=== PATIENT | female | born 1995 ===

== ENCOUNTER 2022-11-13 13:15 | Emergency (ER) | payer MEDICAID, SELFPAY ==
--- NOTE | ~2022-11-13 | CT_ITS ---
EXAMINATION: CT HEAD WITHOUT CONTRAST CLINICAL INFORMATION: Dizziness. Neck pain. COMPARISON: None. TECHNIQUE: Contiguous axial imaging was performed from the skull base to vertex without intravenous administration of contrast. Coronal and sagittal reformatted images are performed at the CT scanner. [This CT examination was performed using dose optimization techniques as appropriate, variously including the following: *Automated exposure control *Adjustment of mA and/or kV according to patient size (this includes techniques or standardized protocols for targeted exams where dose is matched to indication/reason for exam; i.e. extremities or head) *Use of iterative reconstruction technique] DLP: 526 mGy-cm. FINDINGS: There is no evidence of acute intracranial hemorrhage or territorial infarction. No abnormal mass-effect or midline shift is seen. Szymanski to white matter differentiation is well preserved. No extra-axial fluid collections are identified. The ventricles are normal in size. There is no abnormal attenuation within the brain parenchyma. There is no osseous abnormality. The mastoid air cells and visualized portions of the paranasal sinuses are well-aerated. CT/CT head/brain wo IV con IMPRESSION: No acute intracranial pathology.
--- NOTE | 2022-11-13 14:06 | ED.HA ---
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 Patient reports she has had a headache for the last 3 weeks. The headache comes and goes but is generally worse at night She feels as though she is having difficulty sleeping and then she tends to get headaches She states that she occasionally feels dizziness with this She does report a history of headaches for which usually improved with Tylenol Patient denies any trauma to the head or neck. Denies any weakness, blurry vision or nausea She is not on any preventative medications for headaches She has no other medical problems She does have a Nexplanon implant that she has had for over a year Currently the patient does not have any headache <Juan David Royal - Last Filed: 11/13/22 18:44> Related Data Home Medications: Previous Rx's Medication Instructions Recorded melatonin 5 mg tablet 5 - 10 mg PO BEDTIME PRN sleep #30 11/13/22 tabs <PRISCILLA Blackburn - Last Filed: 11/13/22 14:13> Allergies/Adverse Reactions: Allergies Allergy/AdvReac Type Severity Reaction Status Date / Time No Known Allergies Allergy Verified 11/13/22 14:13 <PRISCILLA Blackburn - Last Filed: 11/13/22 14:13> Review of Systems Constitutional: Constitutional: Reports as per HPI, Denies chills, Denies fatigue, Denies fever(s) and Reports headache(s) <Juan David Royal - Last Filed: 11/13/22 18:44> ENT: Reports otalgia and Reports headache(s) <Juan David Perezy - Last Filed: 11/13/22 18:44> Cardiovascular: Cardiovascular: Denies chest pain and Denies dyspnea <Juan David MccannFairplay - Last Filed: 11/13/22 18:44> Respiratory: Respiratory: Denies cough and Denies dyspnea <Juan David OFairplay - Last Filed: 11/13/22 18:44> Gastrointestinal: Gastrointestinal: Denies abdominal pain, Denies constipation and Denies vomiting <Juan David SiobhanFairplay - Last Filed: 11/13/22 18:44> Genitourinary: Genitourinary: Denies dysuria <Juan David ChidiFairplay - Last Filed: 11/13/22 18:44> Neurologic: Reports headache(s) and Denies focal weakness <Juan Davidjude Perezy - Last Filed: 11/13/22 18:44> Psychiatric: Psychiatric: Reports abnormal sleep pattern <Juan David Perezy - Last Filed: 11/13/22 18:44> Endocrine: Endocrine: Denies fatigue <Juan David Perezy - Last Filed: 11/13/22 18:44> [facility] Social History Social History: Social History Alcohol intake: never Smoked in Last 30 Days: No <PRISCILLA Blackburn - Last Filed: 11/13/22 14:13> Physical Exam Vital Signs: Vital Signs: Last Vital Signs Temp 97.8 F 11/13/22 14:07 Pulse 68 11/13/22 18:24 Resp 11/13/22 18:24 BP 120/77 11/13/22 18:24 Pulse Ox 100 11/13/22 18:24 O2 Del Method Room Air 11/13/22 18:24 BMI result Body Mass Index 21.5 <PRISCILLA Blackburn - Last Filed: 11/13/22 14:13> Vital Signs: Last Vital Signs Temp 97.8 F 11/13/22 14:07 Pulse 68 11/13/22 18:24 Resp 20 11/13/22 18:24 BP 120/77 11/13/22 18:24 Pulse Ox 100 11/13/22 18:24 O2 Del Method Room Air 11/13/22 18:24 BMI result Body Mass Index 21.5 < Last Filed: 11/13/22 18:44> Const: General: healthy appearing, comfortable, no acute distress, alert and awake < Last Filed: 11/13/22 18:44> Nutritional Appearance: well nourished < Last Filed: 11/13/22 18:44> Orientation/consciousness: patient oriented x3 < Last Filed: 11/13/22 18:44> HEENT: Head: Yes normocephalic and Yes atraumatic < Last Filed: 11/13/22 18:44> Ears: external ears normal, TM normal on the right and TM normal on the left (Left middle ear effusion without erythema or perforation) < Last Filed: 11/13/22 18:44> Eyes: Eyelids: Yes eyelids normal < Last Filed: 11/13/22 18:44> Conjunctivae: conjunctivae normal < Last Filed: 11/13/22 18:44> Sclerae: sclerae normal < Last Filed: 11/13/22 18:44> Corneas: corneas normal < Last Filed: 11/13/22 18:44> Pupils: Equal, round and reactive pupils present < Filed: 11/13/22 18:44> EOM: EOMs intact bilaterally < Last Filed: 11/13/22 18:44> Neck: Neck: Yes full ROM, Yes no lymphadenopathy and Yes no meningeal signs < Last Filed: 11/13/22 18:44> Resp: Effort & Inspection: normal respiratory effort, able to speak in complete sentences, no audible wheezes and not labored < Last Filed: 11/13/22 18:44> Auscultation: clear to auscultation bilaterally < Last Filed: 11/13/22 18:44> Cardio: Rate: regular rate < Filed: 11/13/22 18:44> Rhythm: regular rhythm <Juan Davidjude Perez Last Filed: 11/13/22 18:44> GI: Inspection: No distended <Juan David OFairplay - Last Filed: 11/13/22 18:44> Palpation (GI): Soft to palpation, not firm, nontender, no guarding and not rigid <Juan David OFairplay - Last Filed: 11/13/22 18:44> Auscultation: normoactive bowel sounds <Juan Davidjude Perez Last Filed: 11/13/22 18:44> Skin: General skin exam: no rashes or lesions noted and elasticity normal <Juan David OTroy - Last Filed: 11/13/22 18:44> Neuro: General: patient oriented x3 and no meningeal signs <Juan Davidjude Perez Last Filed: 11/13/22 18:44> Cranial nerves: Yes CN's II-XII intact bilaterally, Yes Equal, round and reactive pupils present and Yes Bilaterally intact EOM present <Juan Davidjude Perez Last Filed: 11/13/22 18:44> Cognition (Neuro): normal cognition <Juan David MurilloFairplay - Last Filed: 11/13/22 18:44> Course Course Course Narrative: RME: 27-year-old female with no significant past medical history presenting the ED complaining of constant LEY and posterior neck pain x3 weeks. +insomnia and room spinning dizziness. +photophobia denies fever, weakness No midline cervical spinous tenderness. Right-sided paraspinal tenderness noted. TMs WNL. Focal deficits Head CT ordered Full HPI, ROS and PE to be performed by primary ED provider. <PRISCILLA Blackburn - Last Filed: 11/13/22 14:13> Medical Decision Making Medical Decision Making MDM Narrative: This is a healthy 27-year-old female presenting for evaluation of intermittent headaches. Currently she does not have any headache. Her neurologic exam is reassuring without deficit. CT scan of brain is unremarkable. The patient headaches may be related to the insomnia. We will start with melatonin as needed for insomnia. She will follow-up with her PCP. <Juan David Royal - Last Filed: 11/13/22 18:44> Differential Diagnosis Acute headache Tension headache Insomnia Anxiety Stress Migraine headache Intracranial mass <Juan David Royal - Last Filed: 11/13/22 18:44> Lab Data MDM Lab Attestation statement: I reviewed the patient's lab results. <Juan David Royal - Last Filed: 11/13/22 18:44> Result Diagrams: 11/13/22 14:46 11/13/22 14:46 <PRISCILLA Blackburn - Last Filed: 11/13/22 14:13> Labs: Lab Results 11/13/22 11/13/22 11/13/22 Range/Units 14:46 14:46 14:46 WBC 7.0 (4.8-10.8) X10*3/uL RBC 5.17 (4.20-5.50) X10*6/uL Hgb 13.8 (12.0-16.0) g/dl Hct 43.1 (37.0-47.0) % MCV 83.4 (80.0-98.0) fL MCH 26.7 L (27.0-33.0) pg MCHC 32.0 (31.0-35.0) g/dl RDW 12.7 (11.0-16.0) % Plt Count 234 (160-400) X10*3/uL MPV 11.3 (9.4-12.3) fL Immature Gran % (Auto) 0.1 (0.0-0.4) % Neut % (Auto) 59.6 (45-73) % Lymph % (Auto) 30.2 (20-40) % Hooker % (Auto) 8.8 (2-11) % Eos % (Auto) 0.9 (0-4) % Baso % (Auto) 0.4 (0-2) % Lymph # (Auto) 2.1 (1.2-4.9) X10*3/uL Hooker # (Auto) 0.6 (0.1-1.2) X10*3/uL Eos # (Auto) 0.1 (0.0-0.4) X10*3/uL Baso # (Auto) 0.0 (0.0-0.2) X10*3/uL Abs Immat Gran (auto) 0.01 (0.00-0.03) X10*3/uL Absolute Neuts (auto) 4.2 (2.0-8.3) x10*3/uL Absolute Nucleated RBC 0.000 (0.0-0.012) X10*3/uL Nucleated RBC % (auto) 0.0 (0.0-0.2) /100WBC Sodium 139 (135-145) mmol/L Potassium 4.5 (3.3-5.1) mmol/L Chloride 106 (96-108) mmol/L Carbon Dioxide 26 (22-29) mmol/L Anion Gap 12 (12-20) BUN 10 (9-16) mg/dL Creatinine 0.76 (0.5-1.4) mg/dL Estim Creat Clear Calc 87.9 Estimated GFR > 60 Random Glucose 86 (60-115) mg/dL Calcium 9.8 (8.4-10.2) mg/dL Total Bilirubin 1.3 H (0.0-1.0) mg/dL Direct Bilirubin 0.3 (0.0-0.5) mg/dL AST 18 (5-31) U/L ALT 15 (0-31) U/L Alkaline Phosphatase 67 (39-117) U/L Troponin I High Sens < 2.7 (<3.5-17.0) ng/L Total Protein 7.7 (6.5-8.0) g/dL Albumin 4.7 (3.5-5.0) g/dL <PRISCILLA Blackburn - Last Filed: 11/13/22 14:13> Lab Results 11/13/22 11/13/22 11/13/22 Range/Units 14:46 14:46 14:46 WBC 7.0 (4.8-10.8) X10*3/uL RBC 5.17 (4.20-5.50) X10*6/uL Hgb 13.8 (12.0-16.0) g/dl Hct 43.1 (37.0-47.0) % MCV 83.4 (80.0-98.0) fL MCH 26.7 L (27.0-33.0) pg MCHC 32.0 (31.0-35.0) g/dl RDW 12.7 (11.0-16.0) % Plt Count 234 (160-400) X10*3/uL MPV 11.3 (9.4-12.3) fL Immature Gran % (Auto) 0.1 (0.0-0.4) % Neut % (Auto) 59.6 (45-73) % Lymph % (Auto) 30.2 (20-40) % Hooker % (Auto) 8.8 (2-11) % Eos % (Auto) 0.9 (0-4) % Baso % (Auto) 0.4 (0-2) % Lymph # (Auto) 2.1 (1.2-4.9) X10*3/uL Hooker # (Auto) 0.6 (0.1-1.2) X10*3/uL Eos # (Auto) 0.1 (0.0-0.4) X10*3/uL Baso # (Auto) 0.0 (0.0-0.2) X10*3/uL Abs Immat Gran (auto) 0.01 (0.00-0.03) X10*3/uL Absolute Neuts (auto) 4.2 (2.0-8.3) x10*3/uL Absolute Nucleated RBC 0.000 (0.0-0.012) X10*3/uL Nucleated RBC % (auto) 0.0 (0.0-0.2) /100WBC Sodium 139 (135-145) mmol/L Potassium 4.5 (3.3-5.1) mmol/L Chloride 106 (96-108) mmol/L Carbon Dioxide 26 (22-29) mmol/L Anion Gap 12 (12-20) BUN 10 (9-16) mg/dL Creatinine 0.76 (0.5-1.4) mg/dL Estim Creat Clear Calc 87.9 Estimated GFR > 60 Random Glucose 86 (60-115) mg/dL Calcium 9.8 (8.4-10.2) mg/dL Total Bilirubin 1.3 H (0.0-1.0) mg/dL Direct Bilirubin 0.3 (0.0-0.5) mg/dL AST 18 (5-31) U/L ALT 15 (0-31) U/L Alkaline Phosphatase 67 (39-117) U/L Troponin I High Sens < 2.7 (<3.5-17.0) ng/L Total Protein 7.7 (6.5-8.0) g/dL Albumin 4.7 (3.5-5.0) g/dL <Juan David Royal - Last Filed: 11/13/22 18:44> Discharge Plan Discharge Clinical Impression: Headache, Insomnia <PRISCILLA Blackburn - Last Filed: 11/13/22 14:13> Patient Disposition: Home, Self-Care <PRISCILLA Blackburn - Last Filed: 11/13/22 14:13> Instructions: Insomnia (ED) <PRISCILLA Blackburn - Last Filed: 11/13/22 14:13> Additional Instructions: Take melatonin 30 minutes before trying to go to sleep Your headaches may be related to lack of sleep. Your workup in the emergency room today was reassuring <PRISCILLA Blackburn - Last Filed: 11/13/22 14:13> Prescriptions: New melatonin 5 mg tablet 5 - 10 mg PO BEDTIME PRN (Reason: sleep) Qty: 30 0RF <PRISCILLA Blackburn - Last Filed: 11/13/22 14:13>
[2022-11-13 14:07] VITALS: BP 126/78; PULSE 79; RESP 16; TEMP 36.6; O2SAT 99; BMI 21.5
--- NOTE | 2022-11-13 14:14 | ECG_ITS ---
Test Reason : dizzy Blood Pressure : / mmHG Vent. Rate : 071 BPM Atrial Rate : 071 BPM P-R Int : 162 ms QRS Dur : 076 ms QT Int : 360 ms P-R-T Axes : 058 064 051 degrees QTc Int : 391 ms Normal sinus rhythm Cannot rule out Anterior infarct , age undetermined Abnormal ECG No previous ECGs available Referred By: Krysta Girard Electronically Signed By:Brandon Chilel
[2022-11-13 14:53] LABS: Basophils Percent Auto 0.4 % (0-2); Eosinophils Absolute Auto 0.1 X10*3/uL (0.0-0.4); Eosinophils Percent Auto 0.9 % (0-4); Hematocrit 43.1 % (37.0-47.0); Hemoglobin 13.8 g/dl (12.0-16.0); Imm Gran Abs Auto 0.01 X10*3/uL (0.00-0.03); Imm Gran Pct Auto 0.1 % (0.0-0.4); Lymphocytes Absolute Auto 2.1 X10*3/uL (1.2-4.9); Lymphocytes Percent Auto 30.2 % (20-40); MANUAL DIFF FLAG NO; Mean Corpuscular Hemoglobin 26.7 pg (27.0-33.0); Mean Corpuscular Volume 83.4 fL (80.0-98.0); Mean Platelet Volume 11.3 fL (9.4-12.3); Monocytes Absolute Auto 0.6 X10*3/uL (0.1-1.2); Monocytes Percent Auto 8.8 % (2-11); Neutrophils Absolute Auto 4.2 x10*3/uL (2.0-8.3); Neutrophils Percent Auto 59.6 % (45-73); Platelet Count 234 X10*3/uL (160-400); Red Blood Count 5.17 X10*6/uL (4.20-5.50); Red Cell Distribution Width 12.7 % (11.0-16.0)
[2022-11-13 15:11] LABS: Alanine Aminotransferase 15 U/L (0-31); Albumin Level 4.7 g/dL (3.5-5.0); Alkaline Phosphatase 67 U/L (39-117); Anion Gap 12 (12-20); Aspartate Amino Transferase 18 U/L (5-31); Bilirubin Direct 0.3 mg/dL (0.0-0.5); Bilirubin Total 1.3 mg/dL (0.0-1.0); Blood Urea Nitrogen 10 mg/dL (9-16); Calcium 9.8 mg/dL (8.4-10.2); Carbon Dioxide 26 mmol/L (22-29); Chloride 106 mmol/L (96-108); Creatinine Clr Calc Pharmacy 87.9; Estimated Glomerular Filt Rate > 60; Glucose Random 86 mg/dL (60-115); Potassium 4.5 mmol/L (3.3-5.1); Sodium 139 mmol/L (135-145); Total Protein 7.7 g/dL (6.5-8.0)
[2022-11-13 15:38] LABS: Troponin-I High Sensitivity < 2.7 ng/L (<3.5-17.0)
[2022-11-13 18:19] VITALS: BP 120/77; PULSE 68; RESP 14; O2SAT 100
[2022-11-13 18:24] VITALS: BP 120/77; PULSE 68; RESP 20; O2SAT 100
--- NOTE | 2022-11-13 18:32 | PC.NURSE ---
With utilizing intpreter patient reporting 2 weeks worth of neck pain that radiates up to her lower head, reporting blurry vision on/off. Reports no pain at this time, LEY only in the morning and night. Denies n/v/d. denies room spinning, reports some left cramping numbness off and on. labs/testing obtained awaiting provider.
== END 2022-11-13 19:04 | disposition home or self-care (01) ==
LOC: HO.ED 19:00
PROVIDERS: Physician Assistant; Emergency Provider Emergency Medicine
DX: R51.9 Headache, unspecified (principal); G47.00 Insomnia, unspecified
CPT/HCPCS: 36415; 70450; 80048; 80076; 84484; 85025; 93005; 99284; 99285

== ENCOUNTER 2024-08-01 05:30 | Emergency (ER) | payer MEDICAID, SELFPAY ==
--- NOTE | 2024-08-01 | ECG_ITS ---
Test Reason : CHEST PAIN Blood Pressure : */* mmHG Vent. Rate : 82 BPM Atrial Rate : 82 BPM P-R Int : 168 ms QRS Dur : 74 ms QT Int : 356 ms P-R-T Axes : 68 65 44 degrees QTcB Int : 415 ms Normal sinus rhythm Septal infarct (cited on or before 13-Nov-2022) Abnormal ECG When compared with ECG of 13-Nov-2022 14:40, Questionable change in initial forces of Septal leads Referred By: Generic ED Physician Electronically Signed By: Brandon Chilel
--- NOTE | ~2024-08-01 | US_ITS ---
EXAMINATION: US OBSTETRICAL ULTRASOUND CLINICAL INFORMATION: Positive test, right lower quadrant pain. COMPARISON: No prior. Ultrasound abdomen Limited performed concurrently. LMP: Unknown.. TECHNIQUE: Ultrasound of the maternal pelvis is performed using transabdominal and transvaginal transducers. Transvaginal imaging is performed due to inadequate visualization transabdominally. M-mode Doppler is also performed. FINDINGS: Uterus is anteverted and anteflexed. It measures 8.3 x 3.8 x 4.8 cm. The cervix is normal and closed. There is no gestational sac identified, nor is there dual decidual reaction seen. This may be on the basis of early dates. There is no fluid in the endometrial canal. Endometrial thickness equals 10 mm. No myometrial abnormality is evident. No fibroid is seen. MATERNAL ADNEXA: The right maternal ovary measures 2.8 x 1.9 x 3.3 cm. There is a corpus luteal cyst present measuring 1.8 by 1.3 x 2.4 cm. The left maternal ovary measures 3.0 x 1.6 x 1.8 cm. It is sonographically normal. There is no significant maternal adnexal mass. No maternal pelvic ascites. US/US OB pelvic and transvaginal IMPRESSION: 1. No IUP identified. Normal thickness endometrium. This may be on the basis of dates too early for gestational sac visualization. Recommend follow-up beta-hCG and repeat scanning as deemed clinically necessary. 2. Normal myometrial echogenicity. No fibroids. 3. No maternal adnexal mass or pelvic ascites. Normal ovaries. Electronically signed by: Keny Espinosa MD 08/01/2024 09:41 AM [facility]
--- NOTE | ~2024-08-01 | US_ITS ---
EXAMINATION: US ABDOMEN LIMITED CLINICAL INFORMATION: Right upper quadrant pain. COMPARISON: None available. TECHNIQUE: Real-time imaging of the right upper quadrant abdominal viscera. FINDINGS: PANCREAS: Visualized portions are unremarkable. LIVER: The liver is normal in size. The liver contour is normal. Parenchymal echogenicity is normal. No focal hepatic lesion. There is no intrahepatic biliary duct dilatation seen. GALLBLADDER: The gallbladder is physiologically distended without evidence of stones, sludge, polyps, wall thickening or pericholecystic fluid. COMMON BILE DUCT: Normal in caliber measuring 0.2 and 0.3 cm in diameter. RIGHT KIDNEY: There is mild pelvic fullness. No renal calculi or focal parenchymal lesions. The kidney measures 10.7 cm in maximum dimension. FREE FLUID: None. US/US abdomen limited IMPRESSION: Unremarkable gallbladder. Visualized pancreas, liver, CBD and right kidney is unremarkable. Electronically signed by: Rafael Oliver MD 08/01/2024 09:28 AM [facility]
[2024-08-01 05:51] VITALS: BP 103/64; PULSE 86; RESP 18; TEMP 36.8; O2SAT 98; BMI 23.1
[2024-08-01 05:57] LABS: MANUAL DIFF FLAG NO
[2024-08-01 05:59] LABS: Basophils Percent Auto 0.1 % (0-2); Eosinophils Absolute Auto 0.1 X10*3/uL (0.0-0.4); Eosinophils Percent Auto 1.1 % (0-4); Hematocrit 37.9 % (37.0-47.0); Hemoglobin 12.7 g/dl (12.0-16.0); Imm Gran Abs Auto 0.02 X10*3/uL (0.00-0.03); Imm Gran Pct Auto 0.2 % (0.0-0.4); Lymphocytes Absolute Auto 2.9 X10*3/uL (1.2-4.9); Lymphocytes Percent Auto 35.4 % (20-40); Mean Corpuscular HGB Conc 33.5 g/dl (31.0-35.0); Mean Corpuscular Hemoglobin 26.7 pg (27.0-33.0); Mean Corpuscular Volume 79.8 fL (80.0-98.0); Mean Platelet Volume 10.7 fL (9.4-12.3); Monocytes Absolute Auto 0.7 X10*3/uL (0.1-1.2); Monocytes Percent Auto 8.9 % (2-11); Neutrophils Absolute Auto 4.4 x10*3/uL (2.0-8.3); Neutrophils Percent Auto 54.3 % (45-73); Platelet Count 249 X10*3/uL (160-400); Red Blood Count 4.75 X10*6/uL (4.20-5.50); Red Cell Distribution Width 13.1 % (11.0-16.0); White Blood Count 8.2 X10*3/uL (4.8-10.8)
[2024-08-01 06:01] LABS: Appearance Urine Clear; Color Urine Yellow; Glucose Urine UA Negative (Negative); Leukocyte Esterase Urine Small (1+) (Negative); Nitrite Urine Negative (Negative); Specific Gravity - Urine 1.015 (1.005-1.025); UMIC TRIGGER UACC YES; UPreg QC Valid YES; Urine Blood Negative (Negative); Urine Ketones Negative (Negative); Urine Pregnancy POSITIVE (NEGATIVE); Urine Protein Negative (Neg-Trace)
[2024-08-01 06:12] LABS: Bacteria Urine Trace (None Seen); Hyaline Casts Urine 0-2 /LPF (0-2); RBC Urine 0-2 /HPF (0-2); UACC Culture Trigger YES
[2024-08-01 06:16] LABS: Alanine Aminotransferase 15 U/L (0-31); Albumin Level 4.3 g/dL (3.5-5.0); Alkaline Phosphatase 69 U/L (39-117); Anion Gap 12 (12-20); Aspartate Amino Transferase 20 U/L (5-31); Bilirubin Total 1.1 mg/dL (0.0-1.0); Blood Urea Nitrogen 10 mg/dL (9-16); Calcium 8.4 mg/dL (8.4-10.2); Carbon Dioxide 21 mmol/L (22-29); Chloride 108 mmol/L (96-108); Creatinine Clr Calc Pharmacy 96.5; Estimated Glomerular Filt Rate > 60; Glucose Random 87 mg/dL (60-115); Potassium 3.6 mmol/L (3.3-5.1); Sodium 137 mmol/L (135-145); Total Protein 7.3 g/dL (6.5-8.0)
[2024-08-01 06:23] LABS: Troponin-I High Sensitivity < 2.7 ng/L (<3.5-17.0)
--- NOTE | 2024-08-01 08:11 | ED_ITS ---
HPI - Abdominal Pain General Chief Complaint: Abdominal Pain Stated Complaint: chest pain, abd pain Time Seen by Provider: 08/01/24 08:09 Source: patient and educational sign language interpreter (lao) Mode of arrival: ambulatory Limitations: language barrier (lao speaking) History of Present Illness ED Provider: OLIVIA SIERRA PA-C HPI narrative: 29 year old Yemeni speaking female, , with no significant pmhx presents to the ED today for evaluation of right upper quadrant abdominal pain x 2-3 days. Reports constant pain that waxes and wanes in severity. Pain is worse with deep breathing/movement and endorses difficulty finding a comfortable position to lie down in due to the pain. She states the pain will occasionally radiate into the right side of her chest. She reports pain initially began in her right lower quadrant approximately 2 weeks ago. This pain has since subsided. She denies associated nausea, vomiting, constipation or diarrhea. Her LMP was mid-May however she can not recall the exact date. She states that she is currently trying to conceive. She has had 2 negative urine tests at home. Denies any fever, chills, dysuria, hematuria, vaginal discharge. No surgical history. Reports last was 10 years ago. No complications. Related Data Previous Rx's ?Medication ?Instructions ?Recorded melatonin 5 mg tablet 5 - 10 mg (1 - 2 x 5 mg) PO 11/13/22 BEDTIME PRN sleep #30 tabs acetaminophen 325 mg capsule 650 mg (2 x 325 mg) PO Q6H PRN 08/01/24 pain (scale score 4-6) #20 caps cephalexin 500 mg capsule 500 mg PO TID 5 days #21 caps 08/01/24 vit 168-iron 27 mg-folic 1 cap PO DAILY #30 caps 08/01/24 acid 800 mcg-omega3 235 mg capsule (One-A-Day -1) Allergies Allergy/AdvReac Type Severity Reaction Status Date / Time No Known Allergies Allergy Verified 08/05/24 09:59 Review of Systems Review of Systems Constitutional: No fever, chills, fatigue, night sweats, weight changes ENT/Mouth: No ear pain, hearing loss, nasal congestion, sinus pain, rhinorrhea, sore throat Eyes: No eye pain, swelling, redness, vision changes, discharge Cardio: No chest pain, palpitations, D[place], orthopnea, peripheral edema Pulm: No SOB, cough, sputum, wheezing, dyspnea, hemoptysis GI: No nausea, vomiting, hematemesis, diarrhea, constipation, hematochezia, melena, +abdominal pain : No irregular bleeding, dysuria, frequency, urgency, hesitancy, hematuria, flank pain, urinary flow changes, urinary incontinence or retention MSK: No back pain, neck pain, joint pain, myalgias Skin: No lesions, rashes Neuro: No weakness, numbness, paresthesias, LOC, dizziness, headache Psych: No anxiety/panic, depression, SI/HI, AH/VH All other systems reviewed and are negative. [facility] Past Medical History Attestation statement: The following information was validated with the patient. Source: old records reviewed and nursing notes reviewed Social History Social History Alcohol intake: never Advance Directives: No Advance Directives Information Provided: No Do you have a plan to hurt others: No Plan Physical Exam ED Vital Signs: Vital Signs - 24 hr 08/01/24 10:02 08/01/24 10:22 08/01/24 11:34 Temperature 97.4 F 97.4 F 97.4 F Pulse Rate 73 73 73 Respiratory Rate 16 16 16 Blood Pressure 109/69 109/69 133/78 Pulse Oximetry 100 100 Oxygen Delivery Method Room Air BMI result Body Mass Index 23.1 vital signs stable. afebrile, not tachycardic, not hypoxic. General: Well appearing, in no acute distress. Skin: Warm, dry, intact. No rashes or lesions. Head: Normocephalic, atraumatic. EENT: Hearing is intact b/l. Conjunctiva clear. PERRLA. EOM intact. Moist mucous membranes.? Neck: Supple without LAD Cardiac: Chest wall symmetric. RRR Lungs: Normal respiratory effort without accessory muscle use. CTA bilaterally. No rales, rhonchi, or wheezes.? Abdomen: Soft, non-tender, non-distended. No rebound tenderness or guarding. Positive BS x4. no cvat. : exam deferred Back: No midline spinous or paraspinal tenderness. No step off deformity. Ext: Upper and lower extremities atraumatic, without tenderness, deformity, swelling or erythema. Full ROM throughout. no calf tenderness b/l. Neuro: AOx3. Normal speech. Ambulating with steady gait. Psych: Appropriate mood and affect. Responds appropriately to questions. Course Course Course Narrative: CBC without leukocytosis or left shift. no anemia. h&h stable. chsmitry without acute electrolyte abnormality requiring intervention. no maryam. troponin undetectable. EKG showing normal sinus rhythm with a rate of 82 beats per minute, QT 356, QTC 415, no acute ischemic changes or ST elevations. no upper respiratory/ systemic symptoms to suggest CXR or viral testing. > beta hcg 317. Pelvic/transvaginal ultrasound does not demonstrate IUP. There is normal thickness of the endometrium which may signify dates being too early for gestational sac visualization. Recommending follow up beta HCG and repeat scanning as clinically necessary. There is no obvious adnexal mass or pelvic ascites to indicate ectopic/ruptured ectopic. normal ovaries. > urine w/ small leukocyte esterase, wbc, trace urine bacteria. As patient was , will treat for asymptomatic bacteriuria. keflex sent to pharmacy for treatment. > on re-evaluation, patient reports significant improvement in pain w/ Tylenol administration. unclear etiology of patient's pain however work up is unremarkable. she does not currently have a PCP or OBGYN so I advised her to follow up in our ED in 2 days for repeat HCG. Medical Decision Making Medical Decision Making MDM Narrative: 29 year old Yemeni speaking female, , with no significant pmhx presents to the ED today for evaluation of right upper quadrant abdominal pain x 2-3 days. Vital signs stable. Afebrile. Not tachycardic or hypoxic. She is nontoxic- appearing and in no acute distress. Sitting comfortably on the exam bed. Please refer to physical exam portion of note for findings. Differential diagnosis includes biliary colic, renal colic, nephrolithiasis, gastroenteritis, UTI, intrauterine . Abdominal exam without peritoneal signs. No evidence of acute abdomen at this time. Well appearing. Moderate suspicion for acute hepatobiliary disease (including acute cholecystitis). Less likely to represent acute pancreatitis, PUD (including perforation), acute infectious processes (pneumonia, hepatitis, pyelonephritis), atypical appendicitis, vascular catastrophe, bowel obstruction or viscus perforation. Presentation not consistent with other acute, emergent causes of abdominal pain at this time. Plan: labs, EKG, UA, pain control, pelvic ultrasound, RUQ US, serial reassessment Differential Diagnosis Differential Diagnoses: The differential diagnosis associated with the presentation includes as above. Admission/Observation Consideration of admission/observation: Escalation of care including admission/observation considered Admission considered on presentation. Lab Data MDM Lab Attestation statement: I reviewed the patient's lab results. As above 08/01/24 05:49 08/01/24 05:49 Labs: Lab Results 08/01/24 08/01/24 Range/Units 05:49 05:51 WBC 8.2 (4.8-10.8) X10*3/uL RBC 4.75 (4.20-5.50) X10*6/uL Hgb 12.7 (12.0-16.0) g/dl Hct 37.9 (37.0-47.0) % MCV 79.8 L (80.0-98.0) fL MCH 26.7 L (27.0-33.0) pg MCHC 33.5 (31.0-35.0) g/dl RDW 13.1 (11.0-16.0) % Plt Count 249 (160-400) X10*3/uL MPV 10.7 (9.4-12.3) fL Immature Gran % (Auto) 0.2 (0.0-0.4) % Neut % (Auto) 54.3 (45-73) % Lymph % (Auto) 35.4 (20-40) % Centre % (Auto) 8.9 (2-11) % Eos % (Auto) 1.1 (0-4) % Baso % (Auto) 0.1 (0-2) % Lymph # (Auto) 2.9 (1.2-4.9) X10*3/uL Centre # (Auto) 0.7 (0.1-1.2) X10*3/uL Eos # (Auto) 0.1 (0.0-0.4) X10*3/uL Baso # (Auto) 0.0 (0.0-0.2) X10*3/uL Abs Immat Gran (auto) 0.02 (0.00-0.03) X10*3/uL Absolute Neuts (auto) 4.4 (2.0-8.3) x10*3/uL Absolute Nucleated RBC 0.000 (0.0-0.012) X10*3/uL Nucleated RBC % (auto) 0.0 (0.0-0.2) /100WBC Sodium 137 (135-145) mmol/L Potassium 3.6 (3.3-5.1) mmol/L Chloride 108 (96-108) mmol/L Carbon Dioxide 21 L (22-29) mmol/L Anion Gap 12 (12-20) BUN 10 (9-16) mg/dL Creatinine 0.68 (0.5-1.4) mg/dL Estim Creat Clear Calc 96.5 Estimated GFR > 60 Random Glucose 87 (60-115) mg/dL Calcium 8.4 D (8.4-10.2) mg/dL Total Bilirubin 1.1 H (0.0-1.0) mg/dL AST 20 (5-31) U/L ALT 15 (0-31) U/L Alkaline Phosphatase 69 (39-117) U/L Troponin I High Sens < 2.7 (<3.5-17.0) ng/L Total Protein 7.3 (6.5-8.0) g/dL Albumin 4.3 (3.5-5.0) g/dL Beta HCG, Quant 317 mIU/mL Urine Color Yellow Urine Appearance Clear Urine pH 6.0 (5.0-9.0) Ur Specific Horace 1.015 (1.005-1.025) Urine Protein Negative (Neg-Trace) mg/dL Urine Glucose (UA) Negative (Negative) mg/dL Urine Ketones Negative (Negative) mg/dL Urine Blood Negative (Negative) Urine Nitrite Negative (Negative) Ur Leukocyte Esterase Small (1+) H (Negative) Urine RBC 0-2 (0-2) /HPF Urine WBC 6-10 H (0-5) /HPF Ur Squamous Epith Cells 3-5 (0-2) /HPF Urine Bacteria Trace (None Seen) Hyaline Casts 0-2 (0-2) /LPF Urine Test POSITIVE H (NEGATIVE) Independent Interpretation I performed an independent interpretation of an: EKG and Ultrasound Interpretation: EKG showing normal sinus rhythm with a rate of 82 beats per minute, QT 356, QTC 415, no acute ischemic changes or ST elevations. Ultrasound right upper quadrant without GB wall thickening Pelvic US w/o adnexal mass or IUP Radiology Impression Discussion of test interpretation with radiology: I have reviewed the radiologist's reading. Radiologist Impression: EXAMINATION: US ABDOMEN LIMITED CLINICAL INFORMATION: Right upper quadrant pain. COMPARISON: None available. TECHNIQUE: Real-time imaging of the right upper quadrant abdominal viscera. FINDINGS: PANCREAS: Visualized portions are unremarkable. LIVER: The liver is normal in size. The liver contour is normal. Parenchymal echogenicity is normal. No focal hepatic lesion. There is no intrahepatic biliary duct dilatation seen. GALLBLADDER: The gallbladder is physiologically distended without evidence of stones, sludge, polyps, wall thickening or pericholecystic fluid. COMMON BILE DUCT: Normal in caliber measuring 0.2 and 0.3 cm in diameter. RIGHT KIDNEY: There is mild pelvic fullness. No renal calculi or focal parenchymal lesions. The kidney measures 10.7 cm in maximum dimension. FREE FLUID: None. US/US abdomen limited IMPRESSION: Unremarkable gallbladder. Visualized pancreas, liver, CBD and right kidney is unremarkable. Electronically signed by: Rafael Oliver MD 08/01/2024 09:28 AM [facility] EXAMINATION: US OBSTETRICAL ULTRASOUND CLINICAL INFORMATION: Positive test, right lower quadrant pain. COMPARISON: No prior. Ultrasound abdomen Limited performed concurrently. LMP: Unknown.. TECHNIQUE: Ultrasound of the maternal pelvis is performed using transabdominal and transvaginal transducers. Transvaginal imaging is performed due to inadequate visualization transabdominally. M-mode Doppler is also performed. FINDINGS: Uterus is anteverted and anteflexed. It measures 8.3 x 3.8 x 4.8 cm. The cervix is normal and closed. There is no gestational sac identified, nor is there dual decidual reaction seen. This may be on the basis of early dates. There is no fluid in the endometrial canal. Endometrial thickness equals 10 mm. No myometrial abnormality is evident. No fibroid is seen. MATERNAL ADNEXA: The right maternal ovary measures 2.8 x 1.9 x 3.3 cm. There is a corpus luteal cyst present measuring 1.8 by 1.3 x 2.4 cm. The left maternal ovary measures 3.0 x 1.6 x 1.8 cm. It is sonographically normal. There is no significant maternal adnexal mass. No maternal pelvic ascites. US/US OB pelvic and transvaginal IMPRESSION: 1. No IUP identified. Normal thickness endometrium. This may be on the basis of dates too early for gestational sac visualization. Recommend follow-up beta-hCG and repeat scanning as deemed clinically necessary. 2. Normal myometrial echogenicity. No fibroids. 3. No maternal adnexal mass or pelvic ascites. Normal ovaries. Electronically signed by: Keny Espinosa MD 08/01/2024 09:41 AM [facility] External Record Review External record reviewed: Inpatient record Prescription Management I considered prescription management with: Pain Medication and Antibiotic (keflex) Social Determinants Patient?s care significantly limited by Social Determinants of Health including: Other Social Determinant of Health Medications Administered Discontinued Medications Generic Name Dose Route Start Last Admin Trade Name Freq PRN Reason Stop Dose Admin Acetaminophen 975 mg 08/01/24 08:33 08/01/24 09:22 Acetaminophen 325 Mg Tablet PO 08/01/24 08:34 975 mg ONCE ONE Administration Critical Care Time Critical Care Time Critical Care Time: No Discharge Plan Discharge Clinical Impression: , Urinary tract infection Patient Disposition: Home, Self-Care Instructions: (ED), Urinary Tract Infection in Women (ED) Additional Instructions: Your blood work today is reassuring. Both your urine and blood test were positive. Your hormone is 315 today. as discussed, this should double in 48 hours. I advise you to return to the ED in 2 days for repeat blood work. I have sent vitamins to your pharmacy. Take these daily throughout your . I advised Tylenol for pain control. Avoid NSAIDs as these are not safe in . I have also provided you with a referral to an OBGYN doctor. Call them to establish care. they will not call you. Your urine was also positive for infection. Keflex is an antibiotic that has been sent to your pharmacy. Take this 3 times daily x5 days. As discussed, return with any worsening pain, vaginal discharge, vaginal bleeding, fevers. In the case of an emergency call 911. Prescriptions: New acetaminophen 325 mg capsule 650 mg PO Q6H PRN (Reason: pain (scale score 4-6)) Qty: 20 0RF One-A-Day -1 27 mg iron- 800 mcg-235 mg capsule 1 cap PO DAILY Qty: 30 0RF cephalexin 500 mg capsule 500 mg PO TID 5 Days Qty: 21 0RF No Action melatonin 5 mg tablet 5 - 10 mg PO BEDTIME PRN (Reason: sleep) Qty: 30 0RF Referrals: [facility] [place] [Provider Group] [facility] [Provider Group] [facility] [Provider Group] Interventions: ED Discharge Assessment Last Done: 08/01/24 11:34 Discharge Date/Time: 08/01/24 11:34 Print Language: Yemeni
[2024-08-01 08:35] LABS: HCG Quantitative 317 mIU/mL
--- NOTE | 2024-08-01 08:50 | PC.NURSE ---
Pt to US at this time.
[2024-08-01] MEDS: Acetaminophen 325 MG TABLET 975 MG PO (09:22)
[2024-08-01 10:02] VITALS: BP 109/69; PULSE 73; RESP 16; TEMP 36.3; O2SAT 100
[2024-08-01 10:22] VITALS: BP 109/69; PULSE 73; RESP 16; TEMP 36.3
[2024-08-01 11:34] VITALS: BP 133/78; PULSE 73; RESP 16; TEMP 36.3; O2SAT 100
== END 2024-08-01 11:34 | disposition home or self-care (01) ==
PROVIDERS: Emergency Provider Emergency Medicine
DX: O23.41 Unspecified infection of urinary tract in pregnancy, first trimester (principal); N39.0 Urinary tract infection, site not specified; Z3A.00 Weeks of gestation of pregnancy not specified
CPT/HCPCS: 36415; 76705; 76801; 76817; 80053; 81001; 81025; 84484; 84702; 85025; 87086; 93005; 99284

== ENCOUNTER → 2024-08-01 05:40 | Outpatient (BNV) | payer SELFPAY | PROVIDERS: Emergency Provider Emergency Medicine; Visit Provider Internal Medicine Cardiovascular Disease | DX: R94.31 Abnormal electrocardiogram [ECG] [EKG] (principal) | CPT/HCPCS: 93010 ==

== ENCOUNTER → 2024-08-01 08:24 | Outpatient (BNV) | payer SELFPAY | PROVIDERS: Emergency Provider Emergency Medicine; Visit Provider Radiology Diagnostic Radiology | DX: R10.11 Right upper quadrant pain (principal) | CPT/HCPCS: 76705 ==

== ENCOUNTER 2024-08-05 09:53 | Emergency (ER) | payer MEDICAID, OTHER, SELFPAY ==
[2024-08-05 09:56] VITALS: BP 105/75; PULSE 79; RESP 18; TEMP 36.6; O2SAT 98; BMI 23.9
[2024-08-05 10:38] LABS: HCG Quantitative 43 mIU/mL
--- NOTE | 2024-08-05 11:20 | ED.GENADULT ---
HPI - General Adult General Chief complaint: General Medical Stated complaint: repeat blood work Time Seen by Provider: 08/05/24 10:11 Source: patient Mode of arrival: ambulatory Limitations: no limitations History of Present Illness ED Provider: Prudence Keith NP HPI narrative: Patient is a 29-year-old female who presents emergency department for re-evaluation. She reports her last menstrual period was mid May does not recall the exact date, was actively trying to conceive. She was seen in the emergency department on 08/01/2024 after having negative tests at home she had been experiencing right-sided abdominal pain. She was found to have beta hCG of 317, ultrasound without evidence of IUP and no obvious adnexal mass or evidence of ectopic/ruptured ectopic . She was advised to return in 2 days for repeat hCG level. She states that the day following her visit she began noticing small amounts of vaginal bleeding Related Data Previous Rx's ?Medication ?Instructions ?Recorded melatonin 5 mg tablet 5 - 10 mg (1 - 2 x 5 mg) PO 11/13/22 BEDTIME PRN sleep #30 tabs acetaminophen 325 mg capsule 650 mg (2 x 325 mg) PO Q6H PRN 08/01/24 pain (scale score 4-6) #20 caps cephalexin 500 mg capsule 500 mg PO TID 5 days #21 caps 08/01/24 vit 168-iron 27 mg-folic 1 cap PO DAILY #30 caps 08/01/24 acid 800 mcg-omega3 235 mg capsule (One-A-Day -1) Allergies Allergy/AdvReac Type Severity Reaction Status Date / Time No Known Allergies Allergy Verified 08/05/24 09:59 [facility] Social History Social History Alcohol intake: never Advance Directives: No Advance Directives Information Provided: No Do you have a plan to hurt others: No Plan Physical Exam ED Vital Signs: Vital Signs - 24 hr 08/05/24 09:56 08/05/24 11:52 08/05/24 12:02 Temperature 98 F 98.9 F 98.9 F Pulse Rate 79 69 69 Respiratory Rate 18 14 14 Blood Pressure 105/75 119/76 119/76 Pulse Oximetry 98 100 100 Oxygen Delivery Method Room Air Room Air Room Air BMI result Body Mass Index 23.9 Appearance: Alert.?Oriented to person, place and time. No acute distress.?Normal affect. CVS: Heart sounds normal. Normal heart rate and rhythm.? Pulses normal.?? Respiratory: No respiratory distress.? Lung sounds clear to auscultation bilaterally?? Abdomen: Soft and non-tender. Normoactive bowel sounds. N Skin: Skin warm and dry.? Normal skin color.? ? Neuro: Moves all extremities spontaneously. Sensation intact bilaterally. Ambulates with normal steady gait. Medical Decision Making Medical Decision Making [facility] Narrative: Patient is a 29-year-old female who presents emergency department for re-evaluation/repeat hCG level as per HPI. Repeat hCG of 43 just downtrending from 317 4 days ago open this most consistent with missed . I reviewed these findings with patient. She does admit that she has had amenorrhea since May of 2024, with her downtrending hCG and new onset of vaginal bleeding, it is unlikely that this will progress to any successful which I did discuss with patient. She does admit that she has been having a difficult time conceiving in his quite tearful during this time. I recommend that she follow-up outpatient with OBGYN to discuss further evaluation/treatment Differential Diagnosis Differential Diagnoses: The differential diagnosis associated with the presentation includes (See narrative above) Lab Data [facility] Lab Attestation statement: I reviewed the patient's lab results. (See narrative above) Labs: Lab Results 08/05/24 Range/Units 10:06 Beta HCG, Quant 43 mIU/mL Independent Historian Clinical information obtained from an independent historian. History obtained from or confirmed by: Spouse External Record Review External record reviewed: Outpatient record Discharge Plan Discharge Clinical Impression: Spontaneous miscarriage Patient Disposition: Home, Self-Care Instructions: Miscarriage (ED) Additional Instructions: As discussed, your blood levels; hCG, is still detectable but at a very low level today it is 43 when you were seen previously was 317. When you were seen initially ultrasound did not show any evidence of an active . Given the blood level is dropping lower and you have been experiencing some bleeding, this is most consistent with a miscarriage. I do recommend that you follow-up with OBGYN for further evaluation and treatment especially since you have been having difficulty with conceiving Prescriptions: No Action melatonin 5 mg tablet 5 - 10 mg PO BEDTIME PRN (Reason: sleep) Qty: 30 0RF acetaminophen 325 mg capsule 650 mg PO Q6H PRN (Reason: pain (scale score 4-6)) Qty: 20 0RF One-A-Day -1 27 mg iron- 800 mcg-235 mg capsule 1 cap PO DAILY Qty: 30 0RF cephalexin 500 mg capsule 500 mg PO TID 5 Days Qty: 21 0RF Referrals: Physician,None [Primary Care Provider] - Jc Mahmood MD [Physician] - Interventions: ED Discharge Assessment Last Done: 08/05/24 12:02 Discharge Date/Time: 08/05/24 12:06 Print Language: Maltese
[2024-08-05 11:52] VITALS: BP 119/76; PULSE 69; RESP 14; TEMP 37.2; O2SAT 100
[2024-08-05 12:02] VITALS: BP 119/76; PULSE 69; RESP 14; TEMP 37.2; O2SAT 100
== END 2024-08-05 12:06 | disposition home or self-care (01) ==
PROVIDERS: Emergency Provider Emergency Medicine
DX: O03.9 Complete or unspecified spontaneous abortion without complication (principal)
CPT/HCPCS: 36415; 84702; 99282; 99283

== ENCOUNTER 2025-02-13 12:32 | Emergency (ER) | payer MEDICAID, OTHER, SELFPAY ==
--- NOTE | ~2025-02-13 | XR_ITS ---
EXAMINATION: XR LUMBOSACRAL SPINE CLINICAL INFORMATION: pain COMPARISON: None available. 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 Rudimentary ribs at T12. No acute cortical disruption or malalignment. No lytic or blastic lesions. 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 Electronically signed by: Dewey Kennedy MD 02/13/2025 02:41 PM EDT
[2025-02-13 12:39] VITALS: BP 119/59; PULSE 107; RESP 18; TEMP 36.4; O2SAT 97; BMI 23.9
--- NOTE | 2025-02-13 12:39 | ED_ITS ---
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 She reports midline lower back pain for the last few days. 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 Her symptoms started after she bent over to pick something up off the floor. Her pain lateralizes to both side but primarily in the left. She denies any abdominal pain, nausea, vomiting. Denies any burning with urination or blood in the urine. She does report foul-smelling urine Denies any vaginal discharge. She denies any recent falls Her pain is worse with movement, especially trying to get up and walk No fevers or chills Related Data Previous Rx's ?Medication ?Instructions ?Recorded melatonin 5 mg tablet 5 - 10 mg (1 - 2 x 5 mg) PO 11/13/22 BEDTIME PRN sleep #30 tabs acetaminophen 325 mg capsule 650 mg (2 x 325 mg) PO Q6 H PRN 08/01/24 pain (scale score 4-6) #20 caps cephalexin 500 mg capsule 500 mg PO TID 5 days #21 cap s 08/01/24 vit 168-iron 27 mg-folic 1 cap PO DAILY #30 c aps 08/01/24 acid 800 mcg-omega3 235 mg capsule (One-A-Day -1) cefuroxime axetil 250 mg tablet 250 mg PO Q12H #10 tab s 02/13/25 cyclobenzaprine 10 mg tablet 10 mg PO TID PRN muscle s pasm #20 02/13/25 tabs ibuprofen 600 mg tablet 600 mg PO Q6H PRN pain #20 t abs 02/13/25 Allergies Allergy/AdvReac Type Severity Reaction Status Date / Time No Known Allergies Allergy Verified 02/13/25 12:42 Review of Systems Constitutional: Constitutional: Denies body ache(s), Denies chills, Denies fever(s) and Denies headache(s) ENT: Denies headache(s) Cardiovascular: Cardiovascular: Denies chest pain and Denies dyspnea on exertion Respiratory: Respiratory: Denies cough and Denies dyspnea on exertion Gastrointestinal: Gastrointestinal: Denies abdominal pain, Denies nausea and Denies vomiting Genitourinary: Genitourinary: Denies dysmenorrhea, Denies dysuria and Denies pelvic pain Comments: Reports foul-smelling your Musculoskeletal: Musculoskeletal: Reports back pain, Denies numbness and Reports radiating pain into limb Integumentary/Breasts: Skin/Breast: Denies rash Neurologic: Denies headache(s) and Denies numbness Psychiatric: Psychiatric: Denies anxiety PMFSH Social History Social History Alcohol intake: never Physical Exam Vital Signs: Vital Signs: Last Vital Signs Temp 97.6 F 02/13/25 12:39 Pulse 107 H 02/13/25 12:39 Resp 18 02/13/25 12:39 BP 119/59 L 02/13/25 12:39 Pulse Ox 97 02/13/25 12:39 O2 Del Method Room Air 02/13/25 12:39 BMI result Body Mass Index 23.9 Const: General: healthy appearing, comfortable, no acute distress, alert and awake Nutritional Appearance: well nourished Orientation/consciousness: patient oriented x3 HEENT: Head: Yes normocephalic and Yes atraumatic Eyes: Eyelids: Yes eyelids normal Conjunctivae: conjunctivae normal Sclerae: sclerae normal Corneas: corneas normal Pupils: Equal, round and reactive pupils present EOM: EOMs intact bilaterally Neck: Neck: Yes full ROM Resp: Effort & Inspection: normal respiratory effort, able to speak in complete sentences and not labored GI: Inspection: No distended Palpation (GI): Soft to palpation, not firm, nontender, no guarding and not rigid Back/Spine/Pelvis: Other: Patient has midline lumbar sacral tenderness without deformity. Straight leg raise positive on right, negative on left. Strength to lower extremities bilaterally 5/5 in all major muscle groups. No CVA tenderness Skin: General skin exam: elasticity normal Neuro: General: patient oriented x3 Cranial nerves: Yes Equal, round and reactive pupils present and Yes Bilaterally intact EOM present Cognition (Neuro): normal cognition Course Course Course Narrative: This is an RME performed by Estefania Keith CNP: Additional HPI, ROS, PE not included below will be deferred to primary provider. Patient is a 29-year-old female who presents emergency department for evaluation of mid lower back pain x5 days, radiates down right leg, worse with bending and standing. Reports possibility for . No bladder or bowel dysfunction. Denies dysuria/urgency/hesitancy. In: Urinalysis/HCG, XR lumbar spine Medical Decision Making Medical Decision Making MDM Narrative: 29-year-old female presents for evaluation of back pain that radiates towards the left and right side. Her pain started after she bent down to pick something up off the ground and she describes feeling a ?spasm. ? This started 4 days ago. Clinically her pain is more likely musculoskeletal in origin, her x-ray shows Bertolotti syndrome and sacralization which could contribute to her back pain. I discussed this with her using the cigarette maker. No warning signs for cauda equina syndrome. She denies any abdominal pain, nausea, vomiting. She reports foul-smelling urine but denies burning with urination or frequency. Discussed possible UTI with her as there is 4+ bacteria in the urine with positive esterase but no nitrites. Given that she does have foul-smelling urine she would like to be treated for a UTI and this will be prescribed. Vital signs are stable, no fever, no CVA tenderness, less likely complicated UTI Differential Diagnosis Differential Diagnoses: The differential diagnosis associated with the presentation includes Low back pain Bertolotti syndrome Radiculopathy Sciatica UTI Pyelonephritis less likely Admission/Observation Consideration of admission/observation: Escalation of care including admission/observation considered Lab Data Labs: Lab Results 02/13/25 Range/Units 13:02 Urine Color Yellow Urine Appearance Cloudy Urine pH 6.0 (5.0-9.0) Ur Specific Jackson 1.015 (1.005-1.025) Urine Protein Negative (Neg-Trace) mg/dL Urine Glucose (UA) Negative (Negative) mg/dL Urine Ketones Negative (Negative) mg/dL Urine Blood Small (1+) H (Negative) Urine Nitrite Negative (Negative) Ur Leukocyte Esterase Large (3+) H (Negative) Urine RBC 0-2 (0-2) /HPF Urine WBC 6-10 (0-5) /HPF Ur Squamous Epith Cells 11-20 (0-2) /HPF Urine Bacteria 4+ (None Seen) Hyaline Casts 0-2 (0-2) /LPF Urine Test NEGATIVE (NEGATIVE) Discharge Plan Discharge Clinical Impression: Low back pain, UTI (urinary tract infection) Patient Disposition: Home, Self-Care Instructions: Acute Low Back Pain (ED) Additional Instructions: 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 Use ibuprofen/Tylenol for pain. You may use cyclobenzaprine as needed for muscle spasms. This may make you drowsy, do not drink alcohol or drive after taking it. 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 Rudimentary ribs at T12. No acute cortical disruption or malalignment. No lytic or blastic lesions. 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 Electronically signed by: Dewey Kennedy MD 02/13/2025 02:41 PM EDT Prescriptions: New cyclobenzaprine 10 mg tablet 10 mg PO TID PRN (Reason: muscle spasm) Qty: 20 0RF ibuprofen 600 mg tablet 600 mg PO Q6H PRN (Reason: pain) Qty: 20 0RF cefuroxime axetil 250 mg tablet 250 mg PO Q12H Qty: 10 0RF No Action melatonin 5 mg tablet 5 - 10 mg PO BEDTIME PRN (Reason: sleep) Qty: 30 0RF acetaminophen 325 mg capsule 650 mg PO Q6H PRN (Reason: pain (scale score 4-6)) Qty: 20 0RF One-A-Day -1 27 mg iron- 800 mcg-235 mg capsule 1 cap PO DAILY Qty: 30 0RF cephalexin 500 mg capsule 500 mg PO TID 5 Days Qty: 21 0RF Stand Alone Forms: Work/School Release Print Language: Maldivian
[2025-02-13 13:30] LABS: UPreg QC Valid YES
[2025-02-13 13:31] LABS: Appearance Urine Cloudy; Glucose Urine UA Negative (Negative); PH 6.0 (5.0-9.0); Specific Gravity - Urine 1.015 (1.005-1.025); UMIC TRIGGER UACC YES
[2025-02-13 13:50] LABS: UACC Culture Trigger YES
--- OUTSIDE RECORDS SUMMARY | 2025-02-13 16:30 | XMS_ITS | Clinical Summary ---
Author Organization [employer] Address [address] [place] [address] [address] [place] [address] Care Team Providers Care State Director Name Role Phone Unavailable Primary Care Provider Unavailabl e Allergies No known active allergies Medications Sodium Fluoride (PreviDent 5000 Booster Plus) 1.1 % paste Apply 1 application to teeth 2 times daily. 112 g 3 Active Active Problems Problem Noted Date Diagnosed Date Dental calculus 11/19/2022 Social History Tobacco Use Types Packs/Day Years Used Date Smoking Tobacco: Never Smokeless Tobacco: Never Tobacco Cessation:Counseling Given: Not Answered Alcohol Use Standard Drinks/Week Comments Yes 0 (1 standard drink = 0.6 oz pur e alcohol) Comments Unknown Sex and Gender Information Value Date Recorded Sex Assigned at Female 09/25/2022 1:34 PM EST Legal Sex Female 8:40 PM EDT Gender Identity Female 09/25/2022 1:34 PM EST Sexual Orientation Straight 09/25/2022 1: 34 PM EST Last Filed Vital Signs Vital Sign Reading Time Taken Comments Blood Pressure 118/76 12/24/2022 1:36 PM EDT Pulse 66 11/19/2022 1:07 PM EDT Temperature - - Respiratory Rate - - Oxygen Saturation - - Inhaled Oxygen Concentration - - Weight - - Height - - Body Mass Index - - Plan of Treatment Health Maintenance Due Date Last Done Comments Depression Screening 1995 HIV Screening 1995 SDOH Screening 1995 Disability Screening 1995 Alcohol/Substance Use Screening 2007 Family Planning (PISQ) 2010 HPV Vaccines (1 - 3-dose series) 2010 Hepatitis C Screening 2013 DTaP/Tdap/Td Vaccines (1 - Tdap) 2014 Hepatitis B Vaccines (1 of 3 - 19+ 3-dose series) 2014 Pap Smear 02/26/2016 Dental Oral Exam 04/18/2023 10/15/2022 Dental Prophylaxis 05/23/2023 11/19/2022 Dental X-Ray: Bitewings 10/17/2023 10/15/2022 Tobacco Screening 12/25/2023 12/24/2022 COVID-19 Vaccine (1 - 2023-2 5 season) 2024 Influenza Vaccine (#1) 2025 Dental X-Ray: Full Mouth 10/16/2025 10/15/2022 Zoster Vaccines (1 of 2) 2045 RSV Patients and Pa tients Aged 60 years or older (1 - 1-dose 75+ series) 2070 HIB Vaccines Aged Out No longer eligi ble based on patient's age to complete this topic Hepatitis A Vaccines Aged Out No long er eligible based on patient's age to complete this topic IPV Vaccines Aged Out No longer eligi ble based on patient's age to complete this topic Meningococcal B Vaccine Aged Out No l onger eligible based on patient's age to complete this topic Meningococcal Vaccine Aged Out No óscar [place] eligible based on patient's age to complete this topic Pneumococcal Vaccine: Pediat rics (0 to 5 Years) and At-Risk Patients (6 to 49) Years Aged Out No longer eligi ble based on patient's age to complete this topic RSV under 20 months Aged Out No longe r eligible based on patient's age to complete this topic Rotavirus Vaccines Aged Out No longer eligible based on patient's age to complete this topic Procedures Procedure Name Priority Date/Time Associated Diagnosis Comments PROPHYLAXIS - ADULT Routine 11/19/2022 1 :00 PM EDT Dental calculus INTRAORAL - COMPLETE SERIES OF RADIOGRAPHIC IMAGES Routine 10/15/2022 11:00 AM EDT COMPREHENSIVE ORAL EVALUATION - NEW OR ESTABLISHED PATIENT Routine 10/15/2022 11:00 AM EDT from Last 3 Months or Most Recently Relevant to Health Maintenance Insurance [place] C[facility] MEDICAID STAND ADULT
[2025-02-13 16:56] VITALS: BP 119/59; PULSE 107; RESP 18; TEMP 36.4; O2SAT 97
== END 2025-02-13 16:56 | disposition home or self-care (01) ==
PROVIDERS: Nurse Practitioner Family; Emergency Provider Emergency Medicine
DX: M54.50 Low back pain, unspecified (principal); N39.0 Urinary tract infection, site not specified
CPT/HCPCS: 72100; 81001; 81025; 87086; 99282; 99283

== ENCOUNTER → 2025-02-13 13:43 | Outpatient (BNV) | payer MEDICAID, SELFPAY | PROVIDERS: Visit Provider Radiology Diagnostic Radiology | DX: M54.50 Low back pain, unspecified (principal) | CPT/HCPCS: 72100 ==

== ENCOUNTER 2025-04-21 12:04 | Emergency (ER) | payer MEDICAID, OTHER, SELFPAY ==
--- NOTE | ~2025-04-21 | US_ITS ---
CLINICAL HISTORY: , nausea US OB 1st Trimester transabdominal and transvaginal Comparison: None provided Findings: Single intrauterine . CRL: 8.5 mm. EGA: 6 weeks, 6 days. DAVONTE: December 09[birth year] 2025. Previously established gestational age: N/A. Normal yolk sac. Cardiac activity: 135 bpm. No subchorionic bleed. Right ovary 2.3 x 3 x 2.7 cm. Left ovary 0.8 x 1.7 x 1.4 cm. IMPRESSION: Single intrauterine estimated 6 weeks, 6 days gestational age by today's ultrasound criteria. This document has been electronically signed by: Parminder Abdalla MD on 04/21/2025 14:28:02
[2025-04-21 12:25] VITALS: BP 118/60; PULSE 75; RESP 20; TEMP 36.4; O2SAT 100; BMI 24.8
--- NOTE | 2025-04-21 12:27 | ED.GENADULT ---
HPI - General Adult General Chief complaint: General Medical Stated complaint: test Time Seen by Provider: 04/21/25 13:47 Related Data Previous Rx's ?Medication ?Instructions ?Recorded melatonin 5 mg tablet 5 - 10 mg (1 - 2 x 5 mg) PO 11/13/22 BEDTIME PRN sleep #30 tabs acetaminophen 325 mg capsule 650 mg (2 x 325 mg) PO Q6H PRN 08/01/24 pain (scale score 4-6) #20 caps cephalexin 500 mg capsule 500 mg PO TID 5 days #21 caps 08/01/24 vits 168-iron 27 mg-folic 1 cap PO DAILY #30 caps 08/01/24 acid 800 mcg-omega3 235 mg capsule (One-A-Day -1) cefuroxime axetil 250 mg tablet 250 mg PO Q12H #10 tabs 02/13/25 cyclobenzaprine 10 mg tablet 10 mg PO TID PRN muscle spasm #20 02/13/25 tabs ibuprofen 600 mg tablet 600 mg PO Q6H PRN pain #20 tabs 02/13/25 doxylamine succinate 25 mg tablet 25 mg PO BEDTIME #14 tabs 04/21/25 pyridoxine (vitamin B6) 25 mg 25 mg PO TID #60 tabs 04/21/25 tablet Allergies Allergy/AdvReac Type Severity Reaction Status Date / Time No Known Allergies Allergy Verified 04/21/25 12:28 [facility] Social History Social History Alcohol intake: never Advance Directives: No Advance Directives Information Provided: No Do you have a plan to hurt others: No Plan Physical Exam ED Vital Signs: Vital Signs - 24 hr 04/21/25 12:25 04/21/25 15:11 Temperature 97.5 F 97.5 F Pulse Rate 75 75 Respiratory Rate 20 20 Blood Pressure 118/60 118/60 Pulse Oximetry 100 100 Oxygen Delivery Method Room Air Room Air BMI result Body Mass Index 24.8 Course Course Course Narrative: Medical screening exam performed. Please refer to detailed history, exam, evaluation, and management by primary provider. 30-year-old female LMP of January 29, positive test approximately 2 weeks ago. Here with nausea, no care with this . No vaginal discharge bleeding or spotting. Medical Decision Making Lab Data 04/21/25 13:00 04/21/25 13:00 Labs: Lab Results 04/21/25 04/21/25 Range/Units 13:00 13:01 WBC 10.9 H (4.8-10.8) X10*3/uL RBC 4.82 (4.20-5.50) X10*6/uL Hgb 13.1 (12.0-16.0) g/dl Hct 38.7 (37.0-47.0) % MCV 80.3 (80.0-98.0) fL MCH 27.2 (27.0-33.0) pg MCHC 33.9 (31.0-35.0) g/dl RDW 13.8 (11.0-16.0) % Plt Count TNP MPV TNP Immature Gran % (Auto) 0.3 (0.0-0.4) % Neut % (Auto) 73.3 H (45-73) % Lymph % (Auto) 17.5 L (20-40) % [place] % (Auto) 7.7 (2-11) % Eos % (Auto) 0.9 (0-4) % Baso % (Auto) 0.3 (0-2) % Lymph # (Auto) 1.9 (1.2-4.9) X10*3/uL [place] # (Auto) 0.8 (0.1-1.2) X10*3/uL Eos # (Auto) 0.1 (0.0-0.4) X10*3/uL Baso # (Auto) 0.0 (0.0-0.2) X10*3/uL Abs Immat Gran (auto) 0.03 (0.00-0.03) X10*3/uL Absolute Neuts (auto) 8.0 (2.0-8.3) x10*3/uL Absolute Nucleated RBC 0.000 (0.0-0.012) X10*3/uL Nucleated RBC % (auto) 0.0 (0.0-0.2) /100WBC Smear Tech's Comments VERIFIED Sodium 135 (135-145) mmol/L Potassium 3.8 (3.3-5.1) mmol/L Chloride 106 (96-108) mmol/L Carbon Dioxide 23 (22-29) mmol/L Anion Gap 10 L (12-20) BUN 8 L (9-16) mg/dL Creatinine 0.60 (0.5-1.4) mg/dL Estim Creat Clear Calc 120.0 Estimated GFR > 60 Random Glucose 78 (60-115) mg/dL Calcium 9.2 D (8.4-10.2) mg/dL Beta HCG, Quant 42490 mIU/mL Urine Color Yellow Urine Appearance Clear Urine pH 8.5 (5.0-9.0) Ur Specific [place] 1.020 (1.005-1.025) Urine Protein Trace (Neg-Trace) mg/dL Urine Glucose (UA) Negative (Negative) mg/dL Urine Ketones Negative (Negative) mg/dL Urine Blood Negative (Negative) Urine Nitrite Negative (Negative) Ur Leukocyte Esterase Small (1+) H (Negative) Urine RBC 0-2 (0-2) /HPF Urine WBC 0-5 (0-5) /HPF Ur Squamous Epith Cells 0-2 (0-2) /HPF Urine Bacteria Trace (None Seen) Hyaline Casts 0-2 (0-2) /LPF Blood Type O Positive Discharge Plan Discharge Clinical Impression: Patient Disposition: Home, Self-Care Instructions: (ED) Prescriptions: New doxylamine succinate 25 mg tablet 25 mg PO BEDTIME Qty: 14 0RF pyridoxine (vitamin B6) 25 mg tablet 25 mg PO TID Qty: 60 0RF No Action melatonin 5 mg tablet 5 - 10 mg PO BEDTIME PRN (Reason: sleep) Qty: 30 0RF acetaminophen 325 mg capsule 650 mg PO Q6H PRN (Reason: pain (scale score 4-6)) Qty: 20 0RF One-A-Day -1 27 mg iron- 800 mcg-235 mg capsule 1 cap PO DAILY Qty: 30 0RF cephalexin 500 mg capsule 500 mg PO TID 5 Days Qty: 21 0RF cyclobenzaprine 10 mg tablet 10 mg PO TID PRN (Reason: muscle spasm) Qty: 20 0RF ibuprofen 600 mg tablet 600 mg PO Q6H PRN (Reason: pain) Qty: 20 0RF cefuroxime axetil 250 mg tablet 250 mg PO Q12H Qty: 10 0RF Referrals: [facility] [Provider Group, Internal Medicine] Jc Mahmood MD [Physician, WAREHOUSE MATERIAL HANDLER] Interventions: ED Discharge Assessment Last Done: 04/21/25 15:11 Discharge Date/Time: 04/21/25 15:12 Print Language: Nicaraguan
[2025-04-21 13:22] LABS: Appearance Urine Clear; Glucose Urine UA Negative (Negative); PH 8.5 (5.0-9.0); Specific Gravity - Urine 1.020 (1.005-1.025); UMIC TRIGGER UA YES
[2025-04-21 13:23] LABS: Hematocrit 38.7 % (37.0-47.0); Hemoglobin 13.1 g/dl (12.0-16.0); Imm Gran Abs Auto 0.03 X10*3/uL (0.00-0.03); Imm Gran Pct Auto 0.3 % (0.0-0.4); Lymphocytes Absolute Auto 1.9 X10*3/uL (1.2-4.9); MANUAL DIFF FLAG SCAN; Mean Corpuscular HGB Conc 33.9 g/dl (31.0-35.0); Mean Corpuscular Hemoglobin 27.2 pg (27.0-33.0); Mean Corpuscular Volume 80.3 fL (80.0-98.0); NRBC Abs Auto 0.000 X10*3/uL (0.0-0.012); NRBC Pct Auto 0.0 /100WBC (0.0-0.2); PLT CLUMP 1; Red Blood Count 4.82 X10*6/uL (4.20-5.50); SCAN SMEAR FLAG 1
--- OUTSIDE RECORDS SUMMARY | 2025-04-21 13:28 | XMS_ITS | Encounter Summary ---
Author Organization [employer] Address [address] [place] [address] [address] [place] [address] Care Team Providers Care Glass Etcher Helper Name Role Phone Unavailable Primary Care Provider Unavailabl e Reason for Visit * Reason Onset Date Comments appt cancelled 12/10/2022 Encounter Details Date Type Department Care Team ([facility] st Contact Info) Description 12/10/2022 Telephone [facility] [address] [place] [address] Inderjit Silva, DMD [address] [place] [address] appt cancelled Social History Tobacco Use Types Packs/Day Years Used Date Smoking Tobacco: Never Smokeless Tobacco: Never Alcohol Use Standard Drinks/Week Comments Yes 0 (1 standard drink = 0.6 oz pur e alcohol) Comments Unknown Sex and Gender Information Value Date Recorded Sex Assigned at Female 09/25/2022 1:34 PM EST Legal Sex Female 8:40 PM EDT Gender Identity Female 09/25/2022 1:34 PM EST Sexual Orientation Straight 09/25/2022 1: 34 PM EST COVID-19 Exposure Response Date Recorded In the last 10 days, have yo u been in contact with someone who was confirmed or suspected to have Coronavirus/COVID-19? No / Unsure 12/02/2022 10:15 AM EDT documented as of this encounter Miscellaneous Notes * Telephone Encounter - Marcy Grider - 12/10/2022 1:05 PM EDT Patient called in stating that her appt with Dr. Silva had been cancelled and she wanted to rescheduled. Confirmed with [facility] that patients will be called to reschedule appts with Dr. Silva upon return to office documented in this encounter Plan of Treatment Not on file documented as of this encounter Visit Diagnoses Not on filedocumented in this encounter
--- OUTSIDE RECORDS SUMMARY | 2025-04-21 13:28 | XMS_ITS | Clinical Summary ---
Author Organization [employer] Address [address] [place] [address] [address] [place] [address] Care Team Providers Care Reel Winder Name Role Phone Unavailable Primary Care Provider [...] Bitewings 10/17/2023 10/15/2022 Tobacco Screening 12/25/2023 12/24/2022 Cervical Cancer Screening 2025 HPV/Cotest 2025 COVID-19 Vaccine (1 - 2023-2 5 season) 2025 Influenza Vaccine (#1) 2025 Dental X-Ray: Full [...] Most Recently Relevant to Health Maintenance Insurance [facility] C3 DENTAL-[facility] MEDICAID STAND ADULT
[2025-04-21 13:37] LABS: Anion Gap 10 (12-20); Blood Urea Nitrogen 8 mg/dL (9-16); Calcium 9.2 mg/dL (8.4-10.2); Carbon Dioxide 23 mmol/L (22-29); Chloride 106 mmol/L (96-108); Creatinine Clr Calc Pharmacy 120.0; Estimated Glomerular Filt Rate > 60; Potassium 3.8 mmol/L (3.3-5.1); Sodium 135 mmol/L (135-145)
[2025-04-21 13:48] LABS: White Blood Count 10.9 X10*3/uL (4.8-10.8)
--- NOTE | 2025-04-21 14:40 | ED.GENADULT ---
HPI - General Adult General Chief complaint: General Medical Stated complaint: test Time Seen by Provider: 04/21/25 13:47 Source: patient Mode of arrival: ambulatory Limitations: no limitations History of Present Illness ED Provider: Dr. Lee HPI narrative: 30-year-old female presented hospital today for evaluation of . Patient stated that she has been having some nausea. Positive test at home came in for further evaluation. History of 1 miscarriage, 3 pregnancies. One living child. Denies any vaginal bleeding. Related Data Previous Rx's ?Medication ?Instructions ?Recorded melatonin 5 mg tablet 5 - 10 mg (1 - 2 x 5 mg) PO 11/13/22 BEDTIME PRN sleep #30 tabs acetaminophen 325 mg capsule 650 mg (2 x 325 mg) PO Q6H PRN 08/01/24 pain (scale score 4-6) #20 caps cephalexin 500 mg capsule 500 mg PO TID 5 days #21 caps 08/01/24 vits 168-iron 27 mg-folic 1 cap PO DAILY #30 caps 08/01/24 acid 800 mcg-omega3 235 mg capsule (One-A-Day -1) cefuroxime axetil 250 mg tablet 250 mg PO Q12H #10 tabs 02/13/25 cyclobenzaprine 10 mg tablet 10 mg PO TID PRN muscle spasm #20 02/13/25 tabs ibuprofen 600 mg tablet 600 mg PO Q6H PRN pain #20 tabs 02/13/25 doxylamine succinate 25 mg tablet 25 mg PO BEDTIME #14 tabs 04/21/25 pyridoxine (vitamin B6) 25 mg 25 mg PO TID #60 tabs 04/21/25 tablet Allergies Allergy/AdvReac Type Severity Reaction Status Date / Time No Known Allergies Allergy Verified 04/21/25 12:28 Review of Systems Review of Systems: Pertinent review of systems as mentioned in HPI. All other system otherwise negative. [facility] Past Medical History [facility] Narrative: Medical history as mentioned in HPI Social History Social History Alcohol intake: never Advance Directives: No Advance Directives Information Provided: No Do you have a plan to hurt others: No Plan Physical Exam ED Exam Exam: General: Pleasant, no distress, interacting appropriately Head: Normacephalic, atraumatic ENT: oral mucosa moist, neck supple, no tracheal deviation Neurological: Awake and alert, no facial droop noted Skin: Warm and dry Psychiatric: Appropriate mood and thoughts Vital Signs: Vital Signs - 24 hr 04/21/25 12:25 Temperature 97.5 F Pulse Rate 75 Respiratory Rate 20 Blood Pressure 118/60 Pulse Oximetry 100 Oxygen Delivery Method Room Air BMI result Body Mass Index 24.8 Medical Decision Making Medical Decision Making [facility] Narrative: 30-year-old female presented hospital today for evaluation of . She does not have any abdominal pain no vaginal bleeding. Ultrasound shows 6 week gestational embryo product. Do not think she has ectopic . Beta HCG is positive. She is already taking vitamins at this time. Plan to discharge her with a pyridoxine and doxylamine to take for her nausea. Referral will be provided to follow up with OBGYN. We will also plan to give referral to follow up with the primary care doctor. Patient agrees and understands this plan all questions were addressed. Differential Diagnosis Differential Diagnoses: The differential diagnosis associated with the presentation includes , ectopic , hyperemesis gravidarum Lab Data [facility] Lab Attestation statement: I reviewed the patient's lab results. 04/21/25 13:00 04/21/25 13:00 Labs: Lab Results 04/21/25 04/21/25 Range/Units 13:00 13:01 WBC 10.9 H (4.8-10.8) X10*3/uL RBC 4.82 (4.20-5.50) X10*6/uL Hgb 13.1 (12.0-16.0) g/dl Hct 38.7 (37.0-47.0) % MCV 80.3 (80.0-98.0) fL MCH 27.2 (27.0-33.0) pg MCHC 33.9 (31.0-35.0) g/dl RDW 13.8 (11.0-16.0) % Plt Count TNP MPV TNP Immature Gran % (Auto) 0.3 (0.0-0.4) % Neut % (Auto) 73.3 H (45-73) % Lymph % (Auto) 17.5 L (20-40) % Graves % (Auto) 7.7 (2-11) % Eos % (Auto) 0.9 (0-4) % Baso % (Auto) 0.3 (0-2) % Lymph # (Auto) 1.9 (1.2-4.9) X10*3/uL Graves # (Auto) 0.8 (0.1-1.2) X10*3/uL Eos # (Auto) 0.1 (0.0-0.4) X10*3/uL Baso # (Auto) 0.0 (0.0-0.2) X10*3/uL Abs Immat Gran (auto) 0.03 (0.00-0.03) X10*3/uL Absolute Neuts (auto) 8.0 (2.0-8.3) x10*3/uL Absolute Nucleated RBC 0.000 (0.0-0.012) X10*3/uL Nucleated RBC % (auto) 0.0 (0.0-0.2) /100WBC Smear Tech's Comments VERIFIED Sodium 135 (135-145) mmol/L Potassium 3.8 (3.3-5.1) mmol/L Chloride 106 (96-108) mmol/L Carbon Dioxide 23 (22-29) mmol/L Anion Gap 10 L (12-20) BUN 8 L (9-16) mg/dL Creatinine 0.60 (0.5-1.4) mg/dL Estim Creat Clear Calc 120.0 Estimated GFR > 60 Random Glucose 78 (60-115) mg/dL Calcium 9.2 D (8.4-10.2) mg/dL Beta HCG, Quant 28715 mIU/mL Urine Color Yellow Urine Appearance Clear Urine pH 8.5 (5.0-9.0) Ur Specific [place] 1.020 (1.005-1.025) Urine Protein Trace (Neg-Trace) mg/dL Urine Glucose (UA) Negative (Negative) mg/dL Urine Ketones Negative (Negative) mg/dL Urine Blood Negative (Negative) Urine Nitrite Negative (Negative) Ur Leukocyte Esterase Small (1+) H (Negative) Urine RBC 0-2 (0-2) /HPF Urine WBC 0-5 (0-5) /HPF Ur Squamous Epith Cells 0-2 (0-2) /HPF Urine Bacteria Trace (None Seen) Hyaline Casts 0-2 (0-2) /LPF Blood Type O Positive Independent Interpretation I performed an independent interpretation of an: Ultrasound Radiology Impression Discussion of test interpretation with radiology: I have reviewed the radiologist's reading. Discharge Plan Discharge Clinical Impression: Qualifiers: Weeks of gestation: less than 8 weeks Qualified Code(s): Z3A.01 - Less than 8 weeks gestation of Patient Disposition: Home, Self-Care Instructions: (ED) Prescriptions: New doxylamine succinate 25 mg tablet 25 mg PO BEDTIME Qty: 14 0RF pyridoxine (vitamin B6) 25 mg tablet 25 mg PO TID Qty: 60 0RF No Action melatonin 5 mg tablet 5 - 10 mg PO BEDTIME PRN (Reason: sleep) Qty: 30 0RF acetaminophen 325 mg capsule 650 mg PO Q6H PRN (Reason: pain (scale score 4-6)) Qty: 20 0RF One-A-Day -1 27 mg iron- 800 mcg-235 mg capsule 1 cap PO DAILY Qty: 30 0RF cephalexin 500 mg capsule 500 mg PO TID 5 Days Qty: 21 0RF cyclobenzaprine 10 mg tablet 10 mg PO TID PRN (Reason: muscle spasm) Qty: 20 0RF ibuprofen 600 mg tablet 600 mg PO Q6H PRN (Reason: pain) Qty: 20 0RF cefuroxime axetil 250 mg tablet 250 mg PO Q12H Qty: 10 0RF Referrals: [facility] [place] [facility] [Provider Group, Internal Medicine] Jc Mahmood MD [Physician, OUTCOMES SPECIALIST] Print Language: Japanese
[2025-04-21 15:11] VITALS: BP 118/60; PULSE 75; RESP 20; TEMP 36.4; O2SAT 100
== END 2025-04-21 15:12 | disposition home or self-care (01) ==
PROVIDERS: Physician Assistant; Emergency Provider Student in an Organized Health Care Education/Training Program
DX: O26.91 Pregnancy related conditions, unspecified, first trimester (principal); R11.0 Nausea; R10.22 Pelvic and perineal pain left side; Z3A.01 Less than 8 weeks gestation of pregnancy; Z79.899 Other long term (current) drug therapy
CPT/HCPCS: 36415; 76801; 80048; 81001; 84702; 85025; 86900; 86901; 99282; 99283

== ENCOUNTER → 2025-04-21 12:29 | Outpatient (BNV) | payer MEDICAID, SELFPAY | PROVIDERS: Emergency Provider Student in an Organized Health Care Education/Training Program; Visit Provider Specialist | DX: Z3A.01 Less than 8 weeks gestation of pregnancy (principal) | CPT/HCPCS: 76801; 76817 ==

== ENCOUNTER 2025-05-19 08:37 | Emergency (ER) | payer MEDICAID, OTHER, SELFPAY ==
--- OUTSIDE RECORDS SUMMARY | 2025-05-14 08:10 | XMS_ITS | Encounter Summary ---
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 Name Role Phone Pcp, Unknown Primary Care Provider Unavailabl e Reason for Visit * Reason Comments Routine Visit Encounter Details Date Type Department Care Team (Late st Contact Info) Description 05/14/2025 8:10 AM EDT Initial [facility] [address] [place] [address] [place] [address] Abby Farris CNM [address] [place] [id number] [email or web address] JoaquinBenitoAbilio [address] [place] [address] [email or web address] GA: [id number] Social History Tobacco Use Types Packs/Day Years Used Date Smoking Tobacco: Never Smokeless Tobacco: Never Tobacco Cessation:Counseling Given: Not Answered Alcohol Use Standard Drinks/Week Comments Not Currently 0 (1 standard drink = 0.6 oz pur e alcohol) Education Answer Date Recorded Are you interested in more education? Not on carrie e 05/11/2025 Are you concerned about learning? Not on file 05/11/2025 No 05/11/2025 No 05/11/2025 Digital Access Answer Date Recorded No 05/11/2025 No 05/11/2025 Reliable internet access at home? Not on file 05/11/2025 Device with a working camera? Not on file Estimated Date of Delivery Comme nts Yes 11/05/2025 Based on last me nstrual period of 01/29/2025 Sex and Gender Information Value Date Recorded Sex Assigned at Not on file Legal Sex Female 8:19 AM EDT Gender Identity Not on file Sexual Orientation Not on file documented as of this encounter Last Filed Vital Signs Vital Sign Reading Time Taken Comments Blood Pressure 98/58 05/14/2025 8:28 AM EDT Pulse - - Temperature - - Respiratory Rate - - Oxygen Saturation - - Inhaled Oxygen Concentration - - Weight 67.1 kg (148 lb) 05/14/2025 8:28 AM EDT Height 160 cm (5' 3 ) 05/14/2025 8:29 AM EDT Body Mass Index 26.22 05/14/2025 8:28 AM EDT documented in this encounter Patient Instructions * Patient Instructions* Abby Farris CNM - 05/14/2025 8:10 AM EDT Images from the original note were not included. Welcome to [facility] We hope you will find our practice to be friendly and helpful throughout your and beyond,and we sincerely appreciate the opportunity to care for you during this time. Overview of Practice As part of our philosophy of building healthy relationships and providing options in childbirth, you have the choice of seeing our team of nurse-midwives or our team of physicians for your care and delivery. If you have questions or would like to discuss these options further, you will have an opportunity at this first visit. While you may meet only a few providers during your ,each and every member of our practice is involved in your care, working in close collaboration to ensure your safety and satisfaction as you prepare for the of your baby. Midwifery Care at [facility] Certified Nurse Midwives (CNMs) specialize in reproductive and sexual health care. CNMs provide primary care throughout the lifespan, including care related to contraception, family planning, menopause, preconception care, and childbearing. Midwives partner with patients and their families to promote optimal health in and childbirth, with a focus on education and informed choice. ObGyn Care at [facility] An ObGyn is a physician who has been specially trained in obstetrics and gynecology. Care provided by physicians includes care during and childbirth and care of the female reproductive system. In addition, ObGyns are surgeons, expertly trained in procedures that include and hysterectomies. CNMs and ObGyns both see patients at our [place] ([address]) and [place] ([address] [place] [address] ) office locations. All births are attended at the [facility] in collaboration with a multi-disciplinary team of health dialysis patient care technician. Communicating with Our Practice--We want to hear from you! Office staff are available by phone every weekday between 8:00 a.m. and 5:00 p.m. to speak with youif you have questions or a problem that cannot wait until your next office visit. At all other times, providers are inspector semiconductor wafer to address urgent matters. Our secure web portal allows you to review parts of your medical record and communicate with your care team. To foster information-sharing and empower you in your care, web portal access is strongly recommended for all patients. Web messaging via the patient portal is the preferred method for communicating with your care team about routine matters, such as medication refills, non- urgent medical concerns, or questions about lab results. Web messages are generally answered within 3 business days. Please note that lab and ultrasound results are automatically released to the web portal, and may not have been reviewed by a provider when you see them. Providers generally review results within 3 business days. Please be assured that you will be contacted by phone or web messaging regarding any abnormal results requiring follow-up. About [facility] offers tqiwt-io-rrz-art obstetric care in a warmand welcoming environment. From hydrotherapy tubs and nitrous oxide to yoga balls and stools,we offer a variety of non- pharmacologic tools to support your labor and in addition to 24/7 an esthesia care. Our nurses excel in labor support, and partners, support people, and doulas are welcome. Pediatricians are in house for all deliveries, and our Level IB nursery offers specialized carefor babies who require resuscitation or extra support in the early days after . Come see for yourself! Public tours are offered the second and fourth Saturdays of every month at noon; please see our website for details. [facility] Care Many birthing individuals seek [facility] like [facility] for a quieter setting, smaller or consistent care teams, and more personalized care as compared with large academic medical centers. We are proud to be your community hospital, and strive to provide a homelike environment--including double beds, a kitchenette, fridges in every room, space for partners and support people to re lax--as you begin or grow your family. Our interdisciplinary care team is skilled at managing a variety of medical or complications; however, some individuals may benefit from care that is not available at [facility], suchas a intensive care unit (NICU) or highly advanced specialty care. In these cases, transfer to a tertiary care hospital may be recommended. The great majority of these transfers are planned a nd happen prior to labor and . Some of the reasons for transfer include: BMI greater than 48 prior to 35 weeks Severe anomalies Severe growth restriction Serious health complications, such as cardiomyopathy or uncontrolled seizure disorder Achieving Your Best Health During Our practice aims to help you achieve your best possible outcome and to feel your best, too! The following are helpful resources pertaining to self- care in the first trimester and beyond, along with some suggested reading and web resources. Tips for Managing Nausea in Early Lindsay abhishek, chews or tea Peppermint tea Eat small frequent meals- graze every 2-3 hours so your stomach is never empty. Avoid large meals. Eat slowly. Keep snacks (crackers, pretzels, nuts) by your bedside- sometimes eating a little bit before getting up will help a lot. Avoid foods that have strong odors. Sucking on a lemon or [place] slice may help. Don't worry about adhering to a balanced diet unless you are diabetic; just eat whatever appeals toyou until the nausea goes away. [place] foods often make nausea worse. Acupressure wristbands might help- sold in drug and health food stores. Acupuncture may also be helpful. Try drinking carbonated beverages between meals; wait for 30 minutes after eating to drink liquids. vitamins can make nausea worse; try taking them before bed, and if that doesn't help, stoptaking them until your nausea goes away. Discuss with your provider. If you are not taking prenatalvitamins you should take one tablet of folic acid daily (0.4 mg which is 400micrograms per day) during the first trimester. Folic acid will not make nausea worse. Try vitamin B6, 25mg three times a day can help and it's considered to be safe. Most importantly, nausea is very common in . However, if you have severe vomiting and you aren't keeping anything down for 24 hours or more, or have signs of severe dehydration - feeling very faint or weak, rapid heart rate, little to no urine production - give us a call and we'll help. Treating Minor Illnesses During There are a number of common illnesses you may experience while . This section offers some helpful suggestions for dealing with the aches and pains associated with colds, allergies, headachesand some digestive problems. Please call our office if these measures have not been helpful, or if you have any concerns. It is important to keep in mind though that there are a variety of steps to take in treating illnesses, many of which recommend changing behavior or dietary habits, rather than going directly to medications. If you do choose to use a medication, please refer to the section labeled Safe Medications in . Headaches: Headaches are very common in . Lying down in a quiet, dark place, using an ice pack, and making time to rest are helpful for headaches. Limited quantities of caffeine (under 200 mg) may be helpful for prevention or treatment of headaches Tylenol (650 to 1000 mg at a time, no more than 3000 mg per day) appears to be the safest of the pain medications in . If headaches occur frequently, taking 400 mg of magnesium oxide every night at bedtime may be helpful for prevention. Talk with your provider if you are using Tylenol every day for headaches. Muscle Strains: Alternating a heating pad with ice packs and resting the affected area will speed up recovery from strained muscles. Tylenol may also be helpful. Be sure to use proper body mechanics when lifting, bending and stretching. Massage therapy is safe and may be helpful. Fever: Tylenol is always recommended for significant fever. If your temperature is greater than 100.4??F, please call the office for instructions. Make sure you have a working thermometer! Common Cold: Colds sometimes last longer in . Drink a lot of fluids Get plenty of rest Consult safe med list Cough: Drink lots of fluid Try to loosen the secretions by using vapo rubs, nasal saline spray, a warm bath or shower, or sleeping with a humidifier If the cough persists, or you also have a fever, give us a call Congestion: If you're experiencing a stuffy nose, steamy showers twice a day, combined with increased fluid intake will help break up nasal congestions. Try using nasal saline spray - it really helps. Sleep with head of bed elevated Breathe Right strips Medicine Guidelines During Although some medicines are considered safe during , the effects of other medicines on your unborn baby are unknown. With some medicines, the risk of not taking them might be more serious than the potential risk associated with taking them. Your healthcare provider will review your currentprescriptions with you at your first visit and discuss a plan of care with you, consulting with other experts as needed. Over the Counter Medications *Please note: It is difficult to provide high quality data regarding the safety of medications in . We recommend avoiding any unnecessary drug or medication during , especially during the first 20 weeks when the baby's organ systems are forming. No drug can be considered 100% safeto use during . For more information, we recommend the online resource [employer] (People to Remember.org), which has up-to-date information on medications and other common exposures during (including cosmetics and workplace exposures) and also offers an expert hotline for your questions and concerns. Allergy Diphenhydramine (Benadryl??) Loratadine (Claritin??) Cetirizine (Zyrtec??) Cold and Flu Diphenhydramine (Benadryl)* Dextromethorphan (Robitussin??)* Guaifenesin (Mucinex?? [plain]) * Vicks Vapor Rub?? mentholated cream Mentholated or non-mentholated cough drops Pseudoephedrine ([Sudafed??] after 1st trimester) Acetaminophen (Tylenol??)* Saline nasal drops or spray Warm salt/water gargle *Note: We recommend against using the SA (Sustained Action) form of these drugs or the Multi-Symptom form of these drugs. Diarrhea Loperamide ([Imodium??] after 1st trimester, for 24 hours only) Constipation Methylcellulose fiber (Citrucel??) Docusate (Colace??) psyllium (Fiberall??, Metamucil??) polycarbophil (FiberCon??) polyethylene glycol (MiraLAX??)* *Occasional use only Headache Acetaminophen (Tylenol) 2 regular strength or 1 extra strength every 4 hours as needed Heartburn Aluminum hydroxide/magnesium carbonate (Gaviscon??)* Famotidine (Pepcid AC??) Aluminum hydroxide/magnesium hydroxide (Maalox??) Calcium carbonate/magnesium carbonate (Mylanta??) Calcium carbonate (Titralac??, Tums??) *Occasional use only Hemorrhoids Phenylephrine/mineral oil/petrolatum (Preparation H??) Witch suri (Tucks?? pads or ointment) Nausea and Vomiting (please call our triage nurse if you want help with these instructions; will require a pill cutter) Doxylamine 25mg (Unisom SleepTABS) (start with ?? tablet at bedtime, may add ?? tablet in the morning if needed) Combined with vitamin B6 (1/4 of 100 mg tablet 3-4 times a day) You may purchase 25mg online or youwill need to cut a 100 mg tablet. vitamins Any over the counter vitamin DHA optional Urinary tract infection (UTI) In addition to prescribed antibiotics, you may use phenazopyridine over the counter (AZO urinary pain relief) Sleep Diphenhydramine (Unisom SleepGels??, Benadryl) Insect repellant N,U-pfkaknp-qorx-toluamide (DEET??) First Aid Ointment Bacitracin Neomycin/polymyxin B/bacitracin (Neosporin??) Rashes Diphenhydramine cream (Benadryl) Hydrocortisone 1% cream or ointment Oatmeal bath (Aveeno??) Yeast Infection Miconazole (Monistat?? 7) Clotrimazole (Mycelex 7, Gyne-lotrimin) Head Lice Permethrin (RID) Wet combing (americanpregnancy.org - search head lice) Iron Supplements Ferrous sulfate 325mg daily Ferrous gluconate 324mg daily Floradix-liquid iron, use as directed Itching/Rash (creams and ointments) Calamine, caladryl, Benadryl Hydrocortisone 1% (cortisone 10, Cortaid) Vaccinations Influenza (flu) vaccine recommended anytime in Covid-19 annual booster recommended anytime in Tdap vaccine recommended for all in the 3rd trimester RSV vaccine recommended for all between 32 and 36 weeks HepB vaccine is safe, if recommended by your provider Drug/Alcohol Use During Street drugs are not good for your health, but they are even worse for your unborn baby's health, since drugs are passed to your baby while you are . Illegal drugs such as aguilar dust, cocaine, crack, heroin, LSD, marijuana, and speed increase the chance that your baby is born with many possi ble problems. These substances can pass through the placenta and to the baby through the umbilical cord. Alcohol, tobacco, and drugs can lead to premature , defects, low weight, placental abruption, alcohol spectrum disorders, miscarriage, stillbirth, and developmental/behavior problems. According to the [employer], there is no amount of alcohol or marijuana that is proven to be safe during . You may know some women who drank regularly during and had seemingly healthy babies. You may know some women who had very little alcohol during andhad babies with serious health conditions. Every is different and drinking alcohol may hurt one baby more than another. Due to their small liver, babies cannot break down the alcohol as well as you can. Let your healthcare provider know if you are using illegal drugs so they can help you minimize the risk to your baby. We are here to offer treatment and support. You may also call (National Drug and Alcohol Treatment Referral Service) for more information. A Note About Marijuana Use in In [place], marijuana is legal for adults over 21. Legal does not mean safe. There is no known safe amount of marijuana use during or while you are . Marijuana contains THC, the chemical that makes you feel high. This can pass to your baby when you are or , regardless of whether you are smoking, vaping, or eating marijuana. Although scientists are still learning about the effects of cannabis on developing brains, studies suggest that cannabis use during could be linked to problems with attention, memory, problem-solving skills, and behavior in their children later in life. Often marijuana is not pure and can be laced with other, more addictive and harmful drugs. Synthetic marijuana (Spice, K2) can be even more harmful to you and your baby. Marijuana can be prescribed for certain medical conditions, however, it is not recommended while or . Talk to your provider about safer medication alternatives for morning sickness, nausea and vomiting. Let your provider know if you are using marijuana to help with feelings ofsadness or anxiety because there are other safer options to help you. Healthy Diet and Movement for Eating a good variety of nutritious foods and staying active help to support your changing body andyour baby's growth during your .* Read on for some tips on diet, exercise and recommended weight gain during . * Don't stress about this too much in the first trimester if you're nauseated or have food aversions! Nutritional Guidelines During Eat small, frequent meals or substantial snacks; try to eat every 3 hours while awake. Stay energized! Include protein (like egg, poultry or fish), carbohydrate (like fruit, vegetables or cereal) and healthy fat (like olive oil or nuts) in every meal and snack. Be sure to include fiber in your daily intake- whole grain cereals and breads, beans, and fresh fruits and vegetables are great sources of fiber. Try to limit ???empty?? calories in your diet - this means the food has a lot of calories but not a lot of nutrients, such as candy, chips, or sugary drinks. Eat enough to feel satisfied and support a healthy weight gain, but no need to ???eat for two?? ! Most women need around 300 extra calories per day in the last 6 months of - that'sabout the calories in an apple and a tablespoon of peanut butter. Drink at least 6-8 glasses of water per day. Limit soda, juice, and other sweetened beverages. Limit caffeinated beverages to no more than 1-2 cups per day. Eat slowly and avoid large meals- especially before bedtime. Try not to lie flat until at least 2-3hours after eating. For a great source of information regarding your individualized nutritional needs during each trimester, including food group serving targets and sample meal plans, see myplate.gov/myplate-plan. The [employer] also has a great FAQ page on nutrition during : acog.org/womens-health/faqs/hjlrwexgx-tzkckw-yzgtmofaq Food Safety Wash hands, utensils, food and food prep areas before preparing foods. Cook foods thoroughly. Keep hot foods hot and cold foods cold. Heat leftovers thoroughly before eating. Avoid consumption of raw fish and meat in order to prevent certain bacteria and viral illnesses. Cook eggs until whites and yolks are firm. Listeria monocytogenes may be harmful to the baby. To avoid exposure to this organism, avoid deli meats and any soft cheeses made with unpasteurized milk (read labels). Wash all vegetables thoroughly. Fish is a healthy choice but certain fishes contain high levels for methylmercury and should be avoided- swordfish, tilefish, noel mackerel, and shark. Avoid unpasteurized or raw milk For further reading, we recommend the FDA's website for : fda.gov/food/lzmhfk-wqpm-upxojsrqp-illness/lqcw-zlnkhj-enru-to-be Exercise Guidelines in If you are healthy and your is normal, it is safe and recommended to begin or continue exercising during your . Exercise has many benefits during ! It can reduce back pain, ease constipation, improve mood, and promote healthy weight gain during , and it may also decrease your risk of gestational diabetes, preeclampsia, and A good target is 150 minutes of moderate-intensity aerobic exercise each week. Moderate intensity means you are working hard enough to raise your heart rate and start sweating. If you are new to exercise and looking for somewhere to start, brisk walking, swimming, stationary biking, and yoga are great choices. If you are an experienced runner or strength development trainer, these activities can be continued during . Pay attention keeping up with fluid and energy requirements, and do not push through pain. A support belt may reduce discomfort with jogging or running. Talk to your provider before engaging in sports with a higher risk for injury, such as rock climbing, downhill skiing, and contact sports (soccer, rugby, boxing, hockey). Avoid ???hot?? yoga or pilates. Important precautions to take while exercising during are to drink plenty of water before, during, and after your workout; avoid overheating; and avoid lying flat on your back for long periods of time. Keep in mind that your joints are looser during and your growing uterus shifts your center of gravity - it's important to take these changes into account as you choose and move through yourworkouts. For instance, as your progresses you may choose to avoid bouncy or high-impact motions or exercises that require a great deal of balance or stability, as these activities are morelikely to cause muscle strain or injury. The following are some great online resources for exercise during : [employer] strength training for Reds10: self-care and body activities for a more comfortable and [employer]/-/daily-activities [facility] trimester-specific exercise routine: [employer]ieFor/assets/mgh/pdf/orthopaed ics/sports-medicine/wsmp/qhuidpsg-fmzuuk-ycorbhjec-pdf Free Online Yoga routines: prenatalyoSolar Roadways/cuvi-mkzkip-lswhpv/ Weight Gain in A healthy weight gain during your is important for your and your baby's health, and may decrease the risk of complications such as gestational diabetes, high blood pressure or pre-eclampsia, and . The [place] of Medicine has the following recommendations for weight gain based on your starting BMI, which will be calculated at your first visit: Weight for Height BMI Range Recommended Weight Gain in Underweight BMI < 18.5 28 - 40 lbs Normal Weight BMI 18.5 - 24.9 25 - 35 lbs Overweight BMI 25.0 - 29.9 15 - 25 lbs Obese BMI > 30 11 - 20 lbs An average rate of weight gain is 1-5 pounds in the first trimester, and around 1-2 pounds per weekin the second and third trimester. The weight itself amounts to around 18-24 pounds: Baby: 7-8 lbs Placenta: 1.5 lbs Increased fluid volume: 2-3 lbs Uterine growth: 2 lbs Breast growth: 1-3 lbs Increase in blood volume: 3-4 lbs Amniotic fluid: 2 lbs While it is not recommended to lose weight during , gaining less than the recommended range is generally associated with healthy pregnancies as long as you are not starting your underweight. If you are nauseated in the first trimester, it may take you a while to see your weight increase. If you are worried about a healthy weight gain in or are struggling with any aspect of healthy nutrition or movement, ask for support! Your provider may be able to refer you to a farm machinery mechanic or help brainstorm ideas for physical activity. GENETIC SCREENING Genetic carrier screening is a type of blood test that can tell whether you carry a change in a gene for certain genetic disorders. When screening is done before or during , it allows you tosee if you are at risk of having a child with a genetic disorder. The following blood tests were offered to you today as part of your routine care, taking your personal risk factors into account: [] Spinal Muscular Atrophy (SMA): a genetic disorder that affects the nerves of the spine. These nerves control muscles for breathing, swallowing, and movement of the arms and legs. SMA causes these muscles to atrophy (get smaller) and become very weak. Depending on the type, SMA can cause severe disability and . About 1 in 40 to 1 in 60 people are carriers of SMA. [] Cystic fibrosis: a lifelong illness that can affect all the organs of the body. It often causes problems with digestion and breathing. It is estimated that about 1 in 35 people are carriers. [] Hemoglobin electrophoresis: this test screens for hemoglobinopathies, or genetic disorders that affect red blood cells. People with a hemoglobinopathy may have low levels of oxygen because their red blood cells may be a different shape or there may be a shortage of red blood cells. Sickle cell disease and thallasemia are two different types of hemoglobinopathies. [] Fragile X: this syndrome is the most common cause of inherited intellectual disability. Fragile X syndrome affects approximately 1 in 3,600 males and 1 in 6,000 females. [] Jony Sachs: a rare genetic disorder that results in the destruction of nerve cells in the brain and spinal cord, leading to progressive loss of function and . This condition is most common in individuals with certain ancestry, such as Ashkenazi Shinto and Nauruan [place]. ANEUPLOIDY SCREENING A test called cell-free DNA or non-invasive testing (NIPT) can give information about your baby's risk of a chromosomal abnormality, such as Down syndrome. This optional screening is offered to all patients as part of their routine care: Cell-free DNA: a blood test done anytime after 8 weeks' gestation analyzes DNA fragments in your blood. The results estimate your risk of having a baby with chromosomal abnormalities, such as Trisomy 21 (Down syndrome), Trisomy 18 (Edward syndrome), and Trisomy 13 (Patau syndrome). The screening can also provide information about predicted sex and sex-chromosome anomalies such as Klinefelter and Plasencia syndromes. WHAT IF THE SCREENING TEST IS POSITIVE? With all the genetic screening described above, a positive screening does not diagnose an abnormality. False positives are possible and even common for some of these tests. If you receive a positive screen, you will be referred to a genetic counselor to learn more about your risk and follow-up diagnostic testing. DOES INSURANCE COVER THESE TESTS? [employer] ([email or web address]) is a company that processes genetic tests for our practice. If you choose to have testing through [employer], you will complete your blood draw at a [facility] and provide your contact information to the company. Within a couple of days, [employer] will contact you to let you know if your insurance covers the test(s), and what your lcs-[id number] cost is expected to be. If testing is not covered by insurance or you choose not to use your insurance, the maximum ejs-kk-[id number] cost is $249, regardless of how many tests are ordered. When you receive this information from [employer], you will have 48 hours to opt out of having the test run. All above tests are optional, and it is your responsibility to assess insurance coverage. documented in this encounter Progress Notes * Abby Farris CNM - 05/14/2025 8:10 AM EDT Encounter Date: 05/14/2025 KHALIF Salazar is a 30 y.o. who presents today for confirmation. LMP 01/29/25 Cycle length is 28 days. Planned and the patient is feeling happy about it. Marie was not on any contraception at time of conception. Denies exposure to alcohol, tobacco, and drugs of abuse since conception. Partner: Ryan (present today) Denies recent environmental or viral exposures. ROS CONSTITUTIONAL: Positive for loss of appetite, fatigue. Nausea & vom - once/day FEMALE REPRODUCTIVE: Negative for pelvic pain, abnormal vaginal discharge, vaginal bleeding, Positive for breast tenderness, amenorrhea. GASTROINTESTINAL: Negative for constipation, diarrhea. PSYCHIATRIC: Negative for depression, anxiety, history of sexual abuse, history of physical abuse. ANGUS Quick Screen In the three months, how often have you used the following? *Alcohol: Never For men, 5 or more drinks a day For women, 4 or more drinks a day *Tobacco Products: Never *Marijuana: Never *Prescription Drugs for Non-Medical Reasons: Never *Illegal Drugs: {Never - If the patient says ???NO?? for all drugs in the Quick Screen, reinforce abstinence. Screening is complete - If the patient says ???Yes?? to one or more days of heavy drinking, patient is an at-risk drinker. Please see NIAAA website ???How to Help Patients Who Drink Too Much: A Clinical Approach?? http:/ /pubs.niaaa.nih.gov/publications/Practitioner/HjaxozdvzhHmweq4438/clinicians_gui de.htm, for information to Assess, Advise, Assist, and Arrange help for at risk drinkers or patients with alcohol use disorders - If patient says ???Yes?? to use of tobacco: Any current tobacco use places a patient at risk. Advise all tobacco users to quit. For more information on smoking cessation, please see ???Helping Smokers Quit: A Guide for Clinicians?? http://www.ahrq.gov/clinic/tobacco/clinhlpsmksqt.htm - If the patient says ???Yes?? to use of illegal drugs or prescription drugs for non-medical reasons, proceed to Question 1 of the ANGUS-Modified ASSIST. History Patient Active Problem List Diagnosis Encounter for supervision of normal in second trimester History of asthma Bertolotti syndrome OB History Para Term AB Living 3 1 1 1 1 SAB IAB Ectopic Multiple Live Births 1 1 # Outcome Date GA Lbr Ivan/2nd Weight Sex Type Anes PTL Lv 3 Current 2 SAB 08/19/24 1 Term 08/16/14 39w6d 2.948 kg (6 lb 8 oz) F Vag-Spont CANDICE Menstrual History Patient's last menstrual period was 01/29/2025. History reviewed. No pertinent past medical history. No past surgical history on file. History reviewed. No pertinent family history. Social History Socioeconomic History Marital status: /Civil Union Spouse name: Not on file Number of children: Not on file Years of education: Not on file Highest education level: Not on file Occupational History Not on file Tobacco Use Smoking status: Never Smokeless tobacco: Never Vaping Use Vaping status: never used Substance and Sexual Activity Alcohol use: Not Currently Drug use: Never Sexual activity: Yes Partners: Male control/protection: None Other Topics Concern Not on file Social History Narrative Not on file Prior to Admission medications Medication Sig Start Date End Date Taking? Authorizing Provider vitamin with [id number] Tab Take 1 tablet by mouth daily. Yes ProviderShlomo MD VITAMIN B-6 25 MG tablet Take by mouth. 04/21/25 Yes ProviderShlomo MD No Known Allergies Genetic Hx: negative Accepts blood products Physical Exam Vitals: 05/14/25 0828 05/14/25 0829 BP: 98/58 Weight: 67.1 kg (148 lb) Height: 160 cm (5' 3 ) Gen: Alert, cooperative. Well-appearing on today's exam Psych: Mood and affect appropriate. Assessment Pt is a 30 y.o. yo at 15w0d Plan ?? Routine labs discussed - type and screen, CBC, RPR, HepBsAg, Hep C, HIV, GC/CT, urine culture, rubella, varicella ?? Reviewed genetic testing options, including SMA, CF, first trimester screen, and cell free DNA. Marie chooses cfDNA, carrier screen. ?? The patient was counseled regarding nutrition, safe foods in (avoiding soft unpasteurized cheeses, deli meats and fish with mercury), ideal weight gain, exercise guidelines, sexual activity, toxoplasmosis prevention, avoidance of hot tubs, safe medications in , vitamins and supplements, teratogens, travel guidelines, danger signs, how to reach a provider during off hours, and components of care. literature and handouts were given and reviewed. ?? Patient was oriented to practice and plans to receive care from - undecided ?? Patient will return to care next available Problem List Items Addressed This Visit Encounter for supervision of normal in second trimester - Primary Relevant Orders US OB Less Than 14 Weeks Screen CBC Chlamydia trachomatis and Neisseria gonorrhoeae Nucleic Acid Amplification Hemoglobin Evaluation Rubella antibody, IgG Syphilis antibody screen Urine Culture Varicella-zoster (VZV) antibody, IgG Miscellaneous lab test Miscellaneous lab test History of asthma Bertolotti syndrome Other Visit Diagnoses Amenorrhea Relevant Orders Poct Urine HCG (Completed) Need for hepatitis B screening test Relevant Orders Hepatitis B surface antigen Need for hepatitis C screening test Relevant Orders Hepatitis C antibody, qualitative Screening for human immunodeficiency virus Relevant Orders HIV-1/2 antigen/antibody Orders Placed This Encounter Chlamydia trachomatis and Neisseria gonorrhoeae Nucleic Acid Amplification Standing Status: Future Number of Occurrences: 1 Expected Date: 05/14/2025 Expiration Date: 05/14/2026 Hepatitis B surface antigen Standing Status: Future Number of Occurrences: 1 Expected Date: 05/14/2025 Expiration Date: 05/14/2026 Hepatitis C antibody, qualitative Standing Status: Future Number of Occurrences: 1 Expected Date: 05/14/2025 Expiration Date: 05/14/2026 HIV-1/2 antigen/antibody Standing Status: Future Number of Occurrences: 1 Expected Date: 05/14/2025 Expiration Date: 05/14/2026 Person obtaining voluntary and knowing verbal consent from Patient/Guardian/Health Care Agent:: Obtained by PROVIDER SIGNING ORDER Rubella antibody, IgG Standing Status: Future Number of Occurrences: 1 Expected Date: 05/14/2025 Expiration Date: 05/14/2026 Urine Culture Standing Status: Future Expected Date: 05/14/2025 Expiration Date: 05/14/2026 Detailed Specimen Description: clean catch urine Varicella-zoster (VZV) antibody, IgG Standing Status: Future Number of Occurrences: 1 Expected Date: 05/14/2025 Expiration Date: 05/14/2026 US OB Less Than 14 Weeks Standing Status: Future Expected Date: 05/14/2025 Expiration Date: 08/14/2025 Patients LMP: 01/29/2025 Please indicate the number of fetus/fetuses: Unknown If the findings on the transabdominal ultrasound clinically warrant transvaginal imaging, transvaginal imaging will be performed per protocol: I agree Does this exam need to be performed at your institution* for the purpose of imaging care coordination?: No Release to patient: Immediate [1] Influenza Vaccine 3yrs+ Trivalent Preservative Free IM Covid-19 Pfizer Comirnaty Vaccine 12+ CBC Standing Status: Future Number of Occurrences: 1 Expected Date: 05/14/2025 Expiration Date: 05/14/2026 Hemoglobin Evaluation Standing Status: Future Number of Occurrences: 1 Expected Date: 05/14/2025 Expiration Date: 05/14/2026 Syphilis antibody screen Standing Status: Future Number of Occurrences: 1 Expected Date: 05/14/2025 Expiration Date: 05/14/2026 Miscellaneous lab test NOTE: Do not enter comments meant for the laboratory here. Standing Status: Future Expected Date: 05/14/2025 Expiration Date: 05/14/2026 Tests requested: [facility] F[facility]ight Fundamental Panel + Fragile X (Foresight) Miscellaneous lab test NOTE: Do not enter comments meant for the laboratory here. Standing Status: Future Expected Date: 05/14/2025 Expiration Date: 05/14/2026 Tests requested: [facility] cell free DNA (prequel) Poct Urine HCG Release to patient: Immediate [1] Screen NOT for transfusion purposes; NOT for patients currently an inpatient or ED patient Standing Status: Future Number of Occurrences: 1 Expected Date: 05/14/2025 Expiration Date: 08/14/2025 VITAMIN B-6 25 MG tablet Sig: Take by mouth. vitamin with [id number] Tab Sig: Take 1 tablet by mouth daily. doxylamine (UNISOM, DOXYLAMINE,) 25 mg tablet Sig: Take 1 tablet (25 mg total) by mouth nightly at bedtime as needed for nausea. Dispense: 30 tablet Refill: 1 This patient's preferred language is Bhutanese. If available, please offer prescription labels in Bhutanese. All questions answered. Abby Farris CNM * Sandra Strange MA - 05/14/2025 8:10 AM EDT Flu and Covid vaccine was given today and tolerated well. documented in this encounter Plan of Treatment Upcoming Encounters Date Type Department Care Team (Late st Contact Info) Description 05/22/2025 2:10 PM EST [facility]ment [facility] [place], [address] [place] [address] Abby Farris CNM [address] [place] [address] 05/22/2025 2:50 PM EST [facility] [address] [place] [address] [place] [address] Linda Padilla CNM [address] [place] [address], [address] [place] [address] [email or web address] Scheduled Orders Name Type Priority Associated Diagnoses Orde r Schedule US OB Less Than 14 Weeks Imaging Routine Encounter for supervision of other normal in second trimester Expected: 05/14/2025, Expires: 08/14/2025 Urine Culture Microbiology Routine Encounter for supervision of other normal in second trimester Expected: 05/14/2025, Expires: 05/14/2026 Miscellaneous lab test Lab Routine Encounter for supervision of other normal in second trimester Expected: 05/14/2025, Expires: 05/14/2026 Miscellaneous lab test Lab Routine Encounter for supervision of other normal in second trimester Expected: 05/14/2025, Expires: 05/14/2026 documented as of this encounter Procedures Procedure Name Priority Date/Time Associated Diagnosis Comments CHLAMYDIA TRACHOMATIS AND NEISSERIA GONORRHOEAE NUCLEIC ACID DETECTION Routine 05/14/2025 9:24 AM EDT Encounter for supervision of other normal in second trimester POCT URINE HCG Routine 05/14/2025 8:32 AM EDT Amenorrhea documented in this encounter Results * (ABNORMAL) Varicella-zoster (VZV) antibody, IgG (05/14/2025 9:39 AM EDT) Varicella Ab(s) Negative(A ) Positive [facility] Blood (Blood) 05/14/2025 9:3 9 AM EDT 05/14/2025 9:48 AM EDT us Abby Farris CNM NON CULTURE MICROBIOLOG Y Final Result [facility] [address] [place] [address] * Syphilis antibody screen (05/14/2025 9:39 AM EDT) RPR NON-REACTIV E NON-REACTI VE [facility] Blood 05/14/2025 9:39 AM EDT 05/14/2025 9:48 AM EDT us Abby [facility]ON[facility] LAB BLOOD ORDERABLES Fi nal Result Performing Organization Address [facility]/ZIP Co de Phone Number [address] [address] * (ABNORMAL) Rubella antibody, IgG (05/14/2025 9:39 AM EDT) Rubella Ab, IgG Negative(A ) Positive [facility] Blood (Blood) 05/14/2025 9:3 9 AM EDT 05/14/2025 9:48 AM EDT us Abby L[facility]ONOM NON CULTURE MICROBIOLOG Y Final Result Performing Organization Address [facility]/ZIP Co de Phone Number [address] [address] * HIV-1/2 antigen/antibody (05/14/2025 9:39 AM EDT) HIV-1/2 Antigen/Antibo dy NON-REACTI VE NON-REACTI VE [facility] Blood 05/14/2025 9:39 AM EDT 05/14/2025 9:48 AM EDT us Abby Farris CNM LAB BLOOD ORDERABLES Fi nal Result Performing Organization Address [facility]/ZIP Co de Phone Number [address] [address] * Hepatitis C antibody, qualitative (05/14/2025 9:39 AM EDT) HCV NON-REACTIV E NON-REACTI VE [facility] Blood 05/14/2025 9:39 AM EDT 05/14/2025 9:48 AM EDT us Abby Farris [facility] LAB BLOOD ORDERABLES Fi nal Result Performing Organization Address City/[facility]/ZIP Co de Phone Number [address] [address] * Hepatitis B surface antigen (05/14/2025 9:39 AM EDT) HBV SURFACE ANTIGEN NON-REACTI VE NON-REACTI VE [facility] Blood 05/14/2025 9:39 AM EDT 05/14/2025 9:48 AM EDT Abby Farris [facility] LAB BLOOD ORDERABLES Fi nal Result Performing Organization Address [facility] Co de Phone Number [address] [address] * Hemoglobin Evaluation (05/14/2025 9:39 AM EDT) Pathologist [facility] HGB Interpretation SEE NOTE [facility] DPT OF LAB MED AND PAT+ Comment: (NOTE) No electrophoretic evidence of abnormal hemoglobin or beta thalassemia. See comment. Comment: These results do not exclude alpha thalassemia. The vast majority of hemoglobin variants and beta complex thalassemias are excluded, including the common variants Hbs S, C, D, and E, although some rare clinically significant hemoglobin disorders are electrophoretically silent. In particular, some variants such as Hb Constant Spring, or other variants, may not be detected. If otherwise unexplained lifelong/familial symptoms such as hemolysis (i.e. Ez body hemolytic anemia), microcytosis, erythrocytosis, cyanosis, or hypoxia are present and additional testing is desired, please call the Metabolic Hematology Laboratory ( ). If alpha thalassemia is a consideration, alpha globin gene deletion/duplication analysis is available (AGDD/Alpha Globin Cluster Locus Del/Dup). If genotyping to assess for Hb Constant Spring is desired, please order WASEQ/Alpha Globin Gene Sequencing, B. Additional sample required. Methodologies utilized in this interpretation include: capillary electrophoresis, HPLC. HGB Interp Cancel Test component not applicable or not reported. [facility] DPT OF LAB MED AND PAT+ Hb A 97.2 95.8 - 98.0 % [facility] DPT OF LAB MED AND PAT+ Hb F 0.0 0.0 - 0.9 % [facility] DPT OF LAB MED AND PAT+ Hb A2 2.8 2.0 - 3.3 % [facility] DPT OF LAB MED AND PAT+ Comment: (NOTE) ADDITIONAL INFORMATION This test has been modified from the veneer manufacturer's instructions. Its performance characteristics were determined by [facility] in a manner consistent with CLIA requirements. This test has not been cleared or approved by the U.S. Food and Drug Administration. Variant 1 Test component not applicable or not reported. % [facility] DPT OF LAB MED AND PAT+ Variant 2 Test component not applicable or not reported. % [facility] DPT OF LAB MED AND PAT+ Variant 3 Test component not applicable or not reported. % [facility] DPT OF LAB MED AND PAT+ HGBCE Interpretation Test component not applicable or not reported. [facility] DPT OF LAB MED AND PAT+ HPLC Hemoglobin Variant See Interpretation [facility] DPT OF LAB MED AND PAT+ Comment: (NOTE) ADDITIONAL INFORMATION This test has been modified from the veneer manufacturer's instructions. Its performance characteristics were determined by [facility] in a manner consistent with CLIA requirements. This test has not been cleared or approved by the U.S. Food and Drug Administration. Blood 05/14/2025 9:3 9 AM EDT 05/14/2025 9:48 AM EDT us Abby Farris [facility] LAB BLOOD ORDERABLES Fi nal Result [facility] DPT OF LAB MED AND PAT+ [address] [place] [address] * (ABNORMAL) CBC (05/14/2025 9:39 AM EDT) WBC 10.73 4.00 - 11.00 K/uL [facility] RBC 4.29 4.00 - 5.20 M/uL [facility] HGB 11.7(L) 12.0 - 16.0 g/dL [facility] HCT 36.6 36.0 - 46.0 % [facility] PLT 229 150 - 450 K/uL [facility] MCV 85.3 80.0 - 100.0 fL [facility] MCH 27.3 27.0 - 31.0 pg [facility] MCHC 32.0 32.0 - 36.0 g/dL [facility] RDW 14.4 11.5 - 14.5 % [facility] MPV 11.5 8.4 - 12.0 fL [facility] NRBC 0.00 0.00 /100 WBCs [facility] ABSOLUTE NRBC 0.00 0.00 K/uL [facility] Blood 05/14/2025 9:39 AM EDT 05/14/2025 9:48 AM EDT Abby Farris CNM LAB BLOOD ORDERABLES Fi nal Result [address] [address] * Screen (05/14/2025 9:39 AM EDT) ABO/Rh O Positive [facility] Antibody Screen Negative [facility] Resulting Agency [facility] Blood 05/14/2025 9:39 AM EDT 05/14/2025 9:48 AM EDT Abby Farris CNM BLOOD BANK TEST ORDERAB LES Final Result [address] [address] * Chlamydia trachomatis and Neisseria gonorrhoeae Nucleic Acid Amplification (05/14/2025 9:24 AM EDT) CHLAMYDIA TRACHOMATIS Not Detected Not Detected [facility] NEISERIA GONORRHOEAE Not Detected Not Detected [facility] SPECIMEN TYPE URINE [facility] Urine (Urine) 05/14/2025 9:2 4 AM EDT 05/14/2025 3:34 PM EDT Abby L[facility]ONOM NON CULTURE MICROBIOLOG Y Final Result Performing Organization Address City/[facility]/ZIP Co de Phone Number [address] [address] * (ABNORMAL) Poct Urine HCG (05/14/2025 8:32 AM EDT) HCG, urine Positive, Internal QCs acceptable(A) Negative [facility] Other 05/14/2025 8:32 AM EDT Abby Farris CNM POINT OF CARE TEST ORDE RABLES Final Result Performing Organization Address City/[facility] Co de Phone Number [address] [address], [facility] documented in this encounter Visit Diagnoses Diagnosis Encounter for supervision of other normal in second trimester- Primary Amenorrhea Absence of menstruation Need for hepatitis B screening test Need for hepatitis C screening test Special screening examination for other specified viral diseases Screening for human immunodeficiency virus Special screening examination for other specified viral diseases History of asthma Personal history of other diseases of respiratory system Bertolotti syndrome documented in this encounter Care Teams Egg Separator Relationship Specialty Start Date End Date Pcp, Unknown PCP - General 05/09/25 documented as of this encounter Additional Source Comments The information contained in this document represents components of the legal health record. It is not the complete legal health record.[facility]
--- OUTSIDE RECORDS SUMMARY | 2025-05-14 09:21 | XMS_ITS | Encounter Summary ---
Author Organization [facility] Address [address] [place] [phone] Phone Care Team Providers Care Validation Technician Name Role Phone Pcp, Unknown Primary Care Provider Unavailabl e Encounter Details Date Type Department Care Team (Latest Contact Info) Description 05/14/2025 9:21 AM EDT - 05/14/2025 11:59 PM EDT Hospital Encounter [facility] [address] [place] [address] [place] [address] Abby Farris CN [address] [place] [address] [email or web address] Discharge Disposition: Home or Self Care Social History Tobacco Use Types Packs/Day Years Used Date Smoking Tobacco: Never Smokeless Tobacco: Never Alcohol Use Standard Drinks/Week Comments Not Currently [...] on file documented as of this encounter Medications at Time of Discharge doxylamine (UNISOM, DOXYLAMINE,) 25 mg tablet Take 1 tablet (25 mg total) by mouth nightly at bedtime as needed for nausea. 30 tablet 1 05/14/2025 06/13/2025 vitamin with [id number] Tab Take 1 tablet by mouth daily. VITAMIN B-6 25 MG tablet Take by mouth. 04/21/2025 documented as of this encounter Plan of Treatment Upcoming Encounters Date Type Department Care Team (Late st Contact Info) Description 05/22/2025 2:10 PM [facility] [place], [address] [place] [address] Abby Farris, SPRING [address] [place] [address] 05/22/2025 2:50 PM EST Routine [facility] [address] [place] [address] [place] [address] Linda Padilla, SPRING 22 [facility], [address] [address] [email or web address] Pending Results Name Type Priority Associated Diagnoses Date /Time Miscellaneous lab test Lab Routine Encounter for supervision of other normal in second trimester 05/14/2025 9:41 AM EDT Miscellaneous lab test Lab Routine Encounter for supervision of other normal in second trimester 05/14/2025 9:41 AM EDT documented as of this encounter Procedures Procedure Name Priority Date/Time Associated Diagnosis Comments MISCELLANEOUS LAB TEST Routine 9:41 AM EDT Encounter for supervision of other normal in second trimester MISCELLANEOUS LAB TEST Routine 9:41 AM EDT Encounter for supervision of other normal in second trimester HC BLOOD TYPING SEROLOGIC ABO Routine 05/14/2025 9:39 AM EDT Encounter for supervision of other normal in second trimester RUBELLA ANTIBODY, IGG Routine 05/14/2025 9:39 AM EDT Encounter for supervision of other normal in second trimester VARICELLA-ZOSTER (VZV) ANTIBODY, IGG Routine 05/14/2025 9:39 AM EDT Encounter for supervision of other normal in second trimester HIV-1/2 ANTIGEN/ANTIBODY Routine 05/14/2025 9:39 AM EDT Screening for human immunodeficiency virus HEPATITIS C ANTIBODY, QUALITATIVE Routine 05/14/2025 9:39 AM EDT Need for hepatitis C screening test SYPHILIS ANTIBODY SCREEN ASSAY Routine 05/14/2025 9:39 AM EDT Encounter for supervision of other normal in second trimester HEPATITIS B SURFACE ANTIGEN Routine 05/14/2025 9:39 AM EDT Need for hepatitis B screening test CBC Routine 05/14/2025 9:39 AM EDT Encounter for supervision of other normal in second trimester HEMOGLOBIN ELECTROPHORESIS Routine 05/14/2025 9:39 AM EDT Encounter for supervision of other normal in second trimester documented in this encounter Results * Hepatitis B surface antigen (05/14/2025 9:39 AM EDT) HBV SURFACE ANTIGEN NON-REACTI VE NON-REACTI VE [facility] Blood 05/14/2025 9:39 AM EDT 05/14/2025 9:48 AM EDT us Abby LONDONO LAB BLOOD ORDERABLES Fi nal Result [facility] [address] [place] [address] * Hepatitis C antibody, qualitative (05/14/2025 9:39 AM EDT) HCV NON-REACTIV E NON-REACTI VE [facility] Blood 05/14/2025 9:39 AM EDT 05/14/2025 9:48 AM EDT Abby Farris CNM LAB BLOOD ORDERABLES Fi nal Result Performing Organization Address [facility]/ZIP Co de Phone Number [address] [address] * (ABNORMAL) Rubella antibody, IgG (05/14/2025 9:39 AM EDT) Rubella Ab, IgG Negative(A ) Positive [facility] Blood (Blood) 05/14/2025 9:3 9 AM EDT 05/14/2025 9:48 AM EDT Abbyjean paul LONDONO NON CULTURE MICROBIOLOG Y Final Result Performing Organization Address [facility] Co de Phone Number [address] [address] * (ABNORMAL) Varicella-zoster (VZV) antibody, IgG (05/14/2025 9:39 AM EDT) Varicella Ab(s) Negative(A ) Positive [facility] Blood (Blood) 05/14/2025 9:3 9 AM EDT 05/14/2025 9:48 AM EDT Abbyjean paul L[place]ONO NON CULTURE MICROBIOLOG Y Final Result Performing Organization Address [facility] Co de Phone Number [address] [address] * HIV-1/2 antigen/antibody (05/14/2025 9:39 AM EDT) HIV-1/2 Antigen/Antibo dy NON-REACTI VE NON-REACTI VE [facility] Blood 05/14/2025 9:39 AM EDT 05/14/2025 9:48 AM EDT Abby Frankadalberto [facility] LAB BLOOD ORDERABLES Fi nal Result Performing Organization Address [facility] Co de Phone Number [address] [address] * (ABNORMAL) CBC (05/14/2025 9:39 AM EDT) WBC 10.73 4.00 - 11.00 K/uL [facility] RBC 4.29 4.00 - 5.20 M/uL [facility] HGB 11.7(L) 12.0 - 16.0 g/dL [facility] HCT 36.6 36.0 - 46.0 % [facility] PLT 229 150 - 450 K/uL [facility] MCV 85.3 80.0 - 100.0 fL [facility] MCH 27.3 27.0 - 31.0 pg [facility] MCHC 32.0 32.0 - 36.0 g/dL [facility] RDW 14.4 11.5 - 14.5 % [facility] MPV 11.5 8.4 - 12.0 fL [facility] NRBC 0.00 0.00 /100 WBCs [facility] ABSOLUTE NRBC 0.00 0.00 K/uL [facility] Blood 05/14/2025 9:39 AM EDT 05/14/2025 9:48 AM EDT Abby Hall Chahayley Farris [facility] LAB BLOOD ORDERABLES nal Result Performing Organization Address [facility] Co de Phone Number [address] [address] * Hemoglobin Evaluation (05/14/2025 9:39 AM EDT) HGB Interpretation SEE NOTE [facility] DPT OF LAB MED AND PAT+ Comment: [...] Test component not applicable or not reported. [facility] DPT OF LAB MED AND PAT+ Hb A 97.2 95.8 - 98.0 % [facility] DPT OF LAB MED AND PAT+ Hb F 0.0 0.0 - 0.9 % [facility] DPT OF LAB MED AND PAT+ Hb A2 2.8 2.0 - 3.3 % [facility] DPT OF LAB MED AND PAT+ Comment: (NOTE) ADDITIONAL INFORMATION This test has been modified from the retail warehouse associate's instructions. Its performance characteristics were determined by [facility] in a manner consistent with CLIA requirements. This test has not been cleared or approved by the U.S. Food and Drug Administration. Variant 1 Test component not applicable or not reported. % [facility] DPT OF LAB MED AND PAT+ Variant 2 Test component not applicable or not reported. % [facility] DPT OF LAB MED AND PAT+ Variant 3 Test component not applicable or not reported. % [facility] DPT OF LAB MED AND PAT+ HGBCE Interpretation Test component not applicable or not reported. [facility] DPT OF LAB MED AND PAT+ HPLC Hemoglobin Variant See Interpretation [facility] DPT OF LAB MED AND PAT+ Comment: (NOTE) ADDITIONAL INFORMATION This test has been modified from the retail warehouse associate's instructions. Its performance characteristics were determined by [facility] in a manner consistent with CLIA requirements. This test has not been cleared or approved by the U.S. Food and Drug Administration. Blood 05/14/2025 9:39 AM EDT 05/14/2025 9:48 AM EDT Abby Hall Lul Farris [facility] LAB BLOOD ORDERABLES Fi nal Result Performing Organization Address City/[facility]/ZIP Co de Phone Number [facility] DPT OF LAB MED AND PAT+ [address] [place] [address] * Syphilis antibody screen (05/14/2025 9:39 AM EDT) RPR NON-REACTIV E NON-REACTI VE [facility] Blood 05/14/2025 9:39 AM EDT 05/14/2025 9:48 AM EDT Abby Rafael Farris [facility] LAB BLOOD ORDERABLES Fi nal Result Performing Organization Address [facility] Co de Phone Number [address] [address] * Screen (05/14/2025 9:39 AM EDT) ABO/Rh O Positive [facility] Antibody Screen Negative [facility] Resulting Agency [facility] Blood 05/14/2025 9:39 AM EDT 05/14/2025 9:48 AM EDT Abbyjean paul Farris [facility] BLOOD BANK TEST ORDERAB LES Final Result Performing Organization Address [facility] Co de Phone Number [address] [address] documented in this encounter Visit Diagnoses Diagnosis Encounter for supervision of other normal in second trimester Screening for human immunodeficiency virus Special screening examination for other specified viral diseases Need for hepatitis C screening test Special screening examination for other specified viral diseases Need for hepatitis B screening test documented in this encounter Care Teams Validation Technician Relationship Specialty Start Date End Date Pcp, Unknown PCP - General 05/09/25 documented as of this encounter Additional Source Comments The information contained in this document represents components of the legal health record. It is not the complete legal health record.[facility]
--- NOTE | ~2025-05-19 | US_ITS ---
CLINICAL HISTORY: Vag bleeding, ?10 weeks , r o SAB US OB 1st trimester transabdominal Comparison: None provided Findings: Single intrauterine . CRL: 45.5 mm. EGA: 11 weeks, 3 days. DAVONTE: December 05, 2025. Normal yolk sac . Cardiac activity: 161 bpm. No subchorionic bleed. Right ovary 2.4 x 3.2 x 2.4 cm. Left ovary 1.2 x 1.7 x 1.4 cm. IMPRESSION: Single intrauterine estimated 11 weeks, 3 days gestational age by today's ultrasound criteria. This document has been electronically signed by: Santiago Ann MD on 05/19/2025 10:42:13
[2025-05-19 08:42] VITALS: BP 118/64; PULSE 92; RESP 16; TEMP 36.8; O2SAT 99; BMI 25.9
[2025-05-19 08:51] VITALS: BP 118/64; PULSE 92; RESP 16; TEMP 36.8; O2SAT 99
--- NOTE | 2025-05-19 08:54 | PC.NURSE ---
30 F presents to ED with vaginal bleeding, clots since this morning, 14 weeks . RR even unlabored, denies CP or SOB. Pt denies any pain. A+Ox4, calm, cooperative.
--- NOTE | 2025-05-19 08:59 | ED_ITS ---
HPI - General Chief complaint: Vaginal Bleeding Stated complaint: vagina bleeding, Time Seen by Provider: 05/19/25 08:52 Source: patient and director consumer Mode of arrival: ambulatory Limitations: language barrier History of Present Illness ED Provider: Magdalene Saenz APRN HPI Narrative: This is a 30-year-old female who is otherwise healthy who is currently who presents the emergency room with bright red blood noted after urinating this morning on the toilet paper. She has used 1 pad today. There is no associated abdominal pain, fevers, chills or vomiting. She believes she is 14 weeks . She has had an ultrasound to confirm intrauterine on April 21. Her DAVONTE is 11/05. She is MS 1. She is currently followed at [facility] for her OB care. She sees a tattoo technician (Linda Padilla). Her next appointment is on Wednesday. Related Data Previous Rx's ?Medication ?Instructions ?Recorded melatonin 5 mg tablet 5 - 10 mg (1 - 2 x 5 mg) PO 11/13/22 BEDTIME PRN sleep #30 tabs acetaminophen 325 mg capsule 650 mg (2 x 325 mg) PO Q6 H PRN 08/01/24 pain (scale score 4-6) #20 caps cephalexin 500 mg capsule 500 mg PO TID 5 days #21 cap s 08/01/24 vits 168-iron 27 mg-folic 1 cap PO DAILY #30 caps 08/01/24 acid 800 mcg-omega3 235 mg capsule (One-A-Day -1) cefuroxime axetil 250 mg tablet 250 mg PO Q12H #10 tab s 02/13/25 cyclobenzaprine 10 mg tablet 10 mg PO TID PRN muscle s pasm #20 02/13/25 tabs ibuprofen 600 mg tablet 600 mg PO Q6H PRN pain #20 t abs 02/13/25 doxylamine succinate 25 mg tablet 25 mg PO BEDTIME #14 tabs 04/21/25 pyridoxine (vitamin B6) 25 mg 25 mg PO TID #60 tabs tablet Allergies Allergy/AdvReac Type Severity Reaction Status Date / Time No Known Allergies Allergy Verified 05/19/25 08:43 Review of Systems 2 Review of Systems: Yes all other systems are reviewed and are negative Constitutional: Constitutional: Reports no additional constitutional complaints, Denies body ache(s), Denies chills, Denies fever(s), Denies headache(s) and Denies weakness Eyes: Eyes: Reports no additional eye complaints and Denies change in vision ENT: Reports system reviewed and no additional complaints, except as documented, Denies dizziness, Denies headache(s), Denies nasal congestion, Denies nasal discharge and Denies neck pain Cardiovascular: Cardiovascular: Reports no additional cardiovascular complaints, Denies chest pain, Denies leg edema and Denies dyspnea Respiratory: Respiratory: Reports no additional respiratory complaints, Denies cough and Denies dyspnea Gastrointestinal: Gastrointestinal: Reports no additional gastrointestinal complaints, Denies abdominal pain, Denies diarrhea, Denies nausea and Denies vomiting Genitourinary: Genitourinary: Reports no additional female genitourinary complaints, Reports abnormal vaginal bleeding and Denies urinary incontinence Musculoskeletal: Musculoskeletal: Reports no additional musculoskeletal complaints, Denies back pain, Denies arthralgias, Denies joint swelling, Denies neck pain, Denies numbness and Denies tingling Integumentary/Breasts: Skin/Breast: Reports system reviewed and no additional complaints, except as docu and Denies rash Neurologic: Reports system reviewed and no additional complaints, except as documented, Denies Abnormal speech present, Denies dizziness, Denies headache(s), Denies numbness, Denies tingling and Denies weakness PMFSH Past Medical History Attestation statement: The following information was validated with the patient. Source: old records reviewed and nursing notes reviewed Social History Social History Alcohol intake: never Smoked in Last 30 Days: No Use of substances other than those prescribed or required for medical reasons: No Advance Directives: No Advance Directives Information Provided: Yes Do you have a plan to hurt others: No Plan Patient : No Physical Exam 2 Vital Signs: Vital Signs: Last Vital Signs Temp 98.3 F 05/19/25 08:51 Pulse 92 05/19/25 08:51 Resp 16 05/19/25 08:51 BP 118/64 05/19/25 08:51 Pulse Ox 99 05/19/25 08:51 O2 Del Method Room Air 05/19/25 08:51 BMI result Body Mass Index 25.9 Const: General: cooperative, healthy appearing, comfortable and no acute distress Orientation/consciousness: patient oriented x3 Limitations: no limitations HEENT: Head: Yes normal to inspection Ears: hearing grossly normal bilaterally General nose exam: Normal external nose present Face and sinus: Yes normal facial exam Mouth: Normal oral and palatal mucosa present Throat: Yes posterior oropharynx normal Eyes: General: appearance normal, both eyes and all related structures P upils: Equal, round and reactive pupils present Neck: Neck: Yes normal visual inspection Chest: Chest palpation & inspection: normal inspection of the chest Resp: Effort & Inspection: normal respiratory effort Auscultation: clear to auscultation bilaterally Cardio: Rate: regular rate Rhythm: regular rhythm Peripheral pulses: P eripheral pulses 2+ throughout GI: Inspection: Yes normal to inspection Palpation (GI): Soft to palpation and nontender Auscultation: normal bowel sounds Back/Spine/Pelvis: Thoracic/Lumbar Spine: thoracic and lumbar spine normal to inspection Skin: General skin exam: no rashes or lesions noted Neuro: General: patient oriented x3, no focal motor deficits and normal sensation to monofilament Cranial nerves: Yes Equal, round and reactive pupils present Cognition (Neuro): normal cognition Speech: No Abnormal speech present Gait exam (Neuro): Normal gait present Motor exam (neuro): 5/5 motor strength present throughout Extrem: General: Yes normal to inspection Course Course Course Narrative: US shows IMPRESSION: Single intrauterine estimated 11 weeks, 3 days gestational age by today's ultrasound criteria. Labs are normal. Bleeding is mild Patient does not need RhoGAM I recommend that she call her OBGYN on Wednesday to follow-up at [facility]. She should perform pelvic rest. She should seek care in the emergency room for increased bleeding more than 1 pad per hour or increased abdominal pain. This was explained with the director consumer. Medical Decision Making Medical Decision Making MDM Narrative: This is a 30-year-old female who is otherwise healthy who is currently who presents the emergency room with bright red blood noted after urinating this morning on the toilet paper. She has used 1 pad today. There is no associated abdominal pain, fevers, chills or vomiting. She believes she is 14 weeks . She has had an ultrasound to confirm intrauterine on April 21. Her DAVONTE is 11/05. She is MS 1. She is currently followed at [facility] for her OB care. She sees a tattoo technician (Linda Padilla). Her next appointment is on Wednesday. Abdomen soft/nontender VSS Will obtain labs, UA, US She is O positive Differential Diagnosis Differential Diagnoses: The differential diagnosis associated with the presentation includes threatened MS, SAB Admission/Observation Consideration of admission/observation: Escalation of care including admission/observation considered Lab Data MDM Lab Attestation statement: I reviewed the patient's lab results. 05/19/25 09:33 05/19/25 09:33 Labs: Lab Results 05/19/25 05/19/25 Range/Units 08:59 09:33 WBC 8.1 (4.8-10.8) X10*3/uL RBC 4.50 (4.20-5.50) X10*6/uL Hgb 12.0 (12.0-16.0) g/dl Hct 37.0 (37.0-47.0) % MCV 82.2 (80.0-98.0) fL MCH 26.7 L (27.0-33.0) pg MCHC 32.4 (31.0-35.0) g/dl RDW 13.9 (11.0-16.0) % Plt Count 233 (160-400) X10*3/uL MPV 10.9 (9.4-12.3) fL Immature Gran % (Auto) 0.7 H (0.0-0.4) % Neut % (Auto) 68.7 (45-73) % Lymph % (Auto) 22.1 (20-40) % Burt % (Auto) 6.9 (2-11) % Eos % (Auto) 1.2 (0-4) % Baso % (Auto) 0.4 (0-2) % Lymph # (Auto) 1.8 (1.2-4.9) X10*3/uL Burt # (Auto) 0.6 (0.1-1.2) X10*3/uL Eos # (Auto) 0.1 (0.0-0.4) X10*3/uL Baso # (Auto) 0.0 (0.0-0.2) X10*3/uL Abs Immat Gran (auto) 0.06 H (0.00-0.03) X10*3/uL Absolute Neuts (auto) 5.6 (2.0-8.3) x10*3/uL Absolute Nucleated RBC 0.000 (0.0-0.012) X10*3/uL Nucleated RBC % (auto) 0.0 (0.0-0.2) /100WBC Sodium 137 (135-145) mmol/L Potassium 3.7 (3.3-5.1) mmol/L Chloride 107 (96-108) mmol/L Carbon Dioxide 22 (22-29) mmol/L Anion Gap 12 (12-20) BUN 6 L (9-16) mg/dL Creatinine 0.61 (0.5-1.4) mg/dL Estim Creat Clear Calc 120.5 Estimated GFR > 60 Random Glucose 86 (60-115) mg/dL Calcium 9.1 (8.4-10.2) mg/dL Total Bilirubin 0.5 (0.0-1.0) mg/dL AST 22 (5-31) U/L ALT 32 H (0-31) U/L Alkaline Phosphatase 71 (39-117) U/L Total Protein 7.1 (6.5-8.0) g/dL Albumin 4.0 (3.5-5.0) g/dL Beta HCG, Quant 89963 mIU/mL Urine Color Yellow Urine Appearance Clear Urine pH 7.5 (5.0-9.0) Ur Specific Yoder 1.020 (1.005-1.025) Urine Protein 30 (1+) H (Neg-Trace) mg/dL Urine Glucose (UA) Negative (Negative) mg/dL Urine Ketones Negative (Negative) mg/dL Urine Blood Large (3+) H (Negative) Urine Nitrite Negative (Negative) Ur Leukocyte Esterase Trace H (Negative) Urine RBC 11-20 H (0-2) /HPF Urine WBC 0-5 (0-5) /HPF Ur Squamous Epith Cells 3-5 (0-2) /HPF Urine Bacteria 1+ (None Seen) Hyaline Casts 0-2 (0-2) /LPF Urine Test POSITIVE H (NEGATIVE) Independent Interpretation I performed an independent interpretation of an: Ultrasound Interpretation: I independently viewed the ultrasound agree with the radiology report Radiology Impression Discussion of test interpretation with radiology: I have reviewed the radiologist's reading. Radiologist Impression: [address] [address] Ultrasound Report Signed Patient: Marie Maravilla MR#: [id number] : 1995 Acct:[id number] Age/Sex: 30 / F ADM Date: 05/19/25 Loc: .ED Attending Dr: Ordering Physician: Magdalene Saenz NP Date of Service: 05/19/25 Procedure(s): US OB <= 14 weeks fetus Accession Number(s): [id number] cc: Magdalene Saenz MANUFACTURER; Physician,Unknown ~ Reason for Exam: Vag bleeding, ?10 weeks , r/o SAB CLINICAL HISTORY: Vag bleeding, ?10 weeks , r o SAB US OB 1st trimester transabdominal Comparison: None provided Findings: Single intrauterine . CRL: 45.5 mm. EGA: 11 weeks, 3 days. DAVONTE: December 05[birth year] 2025. Normal yolk sac . Cardiac activity: 161 bpm. No subchorionic bleed. Right ovary 2.4 x 3.2 x 2.4 cm. Left ovary 1.2 x 1.7 x 1.4 cm. IMPRESSION: Single intrauterine estimated 11 weeks, 3 days gestational age by today's ultrasound criteria. Independent Historian Clinical information obtained from an independent historian. History obtained from or confirmed by: Spouse Discharge Plan Discharge Clinical Impression: Threatened Patient Disposition: Home, Self-Care Instructions: Threatened Miscarriage (ED) Additional Instructions: You were seen in our Emergency Department for a vaginal bleeding in . Your ultrasound did confirm a in your uterus. Below is the report. IMPRESSION: Single intrauterine estimated 11 weeks, 3 days gestational age by today's ultrasound criteria. [facility] [place] [phone] If you have increased bleeding, abdominal pain please seek care in the ER as discussed Please perform pelvic rest Prescriptions: No Action melatonin 5 mg tablet 5 - 10 mg PO BEDTIME PRN (Reason: sleep) Qty: 30 0RF doxylamine succinate 25 mg tablet 25 mg PO BEDTIME Qty: 14 0RF pyridoxine (vitamin B6) 25 mg tablet 25 mg PO TID Qty: 60 0RF acetaminophen 325 mg capsule 650 mg PO Q6H PRN (Reason: pain (scale score 4-6)) Qty: 20 0RF One-A-Day -1 27 mg iron- 800 mcg-235 mg capsule 1 cap PO DAILY Qty: 30 0RF cephalexin 500 mg capsule 500 mg PO TID 5 Days Qty: 21 0RF cyclobenzaprine 10 mg tablet 10 mg PO TID PRN (Reason: muscle spasm) Qty: 20 0RF ibuprofen 600 mg tablet 600 mg PO Q6H PRN (Reason: pain) Qty: 20 0RF cefuroxime axetil 250 mg tablet 250 mg PO Q12H Qty: 10 0RF Print Language: Cymraes
[2025-05-19 09:10] LABS: Appearance Urine Clear; Glucose Urine UA Negative (Negative); PH 7.5 (5.0-9.0); Specific Gravity - Urine 1.020 (1.005-1.025); UMIC TRIGGER UACC YES; UPreg QC Valid YES
--- OUTSIDE RECORDS SUMMARY | 2025-05-19 09:34 | XMS_ITS | Encounter Summary ---
Author Organization [facility] Address [address] [place] [address] [place] [phone] Phone Care Team Providers Care Biological Aide Name Role Phone Pcp, Unknown Primary Care Provider Unavailabl e Encounter Details Date Type Department Care Team (Late st Contact Info) Description 05/14/2025 Telephone [facility] [address] [place] [address] [place] [address] Abby Farris CNM [address] [place] [address] [email or web address] Social History Tobacco Use Types Packs/Day Years [...] on file documented as of this encounter Progress Notes * Abby Farris CNM - 05/15/2025 9:08 AM EDT Error documented in this encounter Plan of Treatment Upcoming Encounters Date Type Department Care Team (Late st Contact Info) Description 05/22/2025 2:10 PM EST [facility]ment [facility] [address] [place] [address] Abby Farris CNM [address] [place] [address] 05/22/2025 2:50 PM EST Routine [facility] [address] [place] [address] Linda Padilla CNM [address] [address] documented as of this encounter Visit Diagnoses Not on filedocumented in this encounter Care Teams Biological Aide Relationship Specialty Start Date End Date Pcp, Unknown PCP - General 05/09/25 documented as of this encounter Additional Source Comments The information contained in this document represents components of the legal health record. It is not the complete legal health record.[facility]
--- OUTSIDE RECORDS SUMMARY | 2025-05-19 09:34 | XMS_ITS | Encounter Summary ---
Author Organization [facility] Address [address] [place] [id number] Phone Care Team Providers Care Interactive Media Specialist Name Role Phone Pcp, Unknown Primary Care Provider Unavailabl e Encounter Details Date Type Department Care Team (Latest Contact Info) Description 05/14/2025 Transcribe Orders [address] [place] [address] Abby Farris CNM [address] [place] [phone] [email or web address] Encounter for supervision of other normal in second trimester (Primary Dx) Social History Tobacco Use Types Packs/Day Years [...] on file documented as of this encounter Plan of Treatment Upcoming Encounters Date Type Department Care Team (Late st Contact Info) Description 05/22/2025 2:10 PM EST Appointment [facility] [employer], [address] [place] [address] Abby Farris, SPRING [address] [place] [address] 05/22/2025 2:50 PM EST Routine [facility] [address] [place] [address] [place] [address] Linda Padilla, SPRING [address] [address] [email or web address] Pending Results Name Type Priority Associated Diagnoses Date /Time Miscellaneous lab test Lab Routine Encounter for supervision of other normal in second trimester 05/14/2025 9:41 AM EDT Miscellaneous lab test Lab Routine Encounter for supervision of other normal in second trimester 05/14/2025 9:41 AM EDT documented as of this encounter Visit Diagnoses Diagnosis Encounter for supervision of other normal in second trimester- Primary documented in this encounter Care Teams Interactive Media Specialist Relationship Specialty Start Date End Date Pcp, Unknown PCP - General 05/09/25 documented as of this encounter Additional Source Comments The information contained in this document represents components of the legal health record. It is not the complete legal health record.[facility]
--- OUTSIDE RECORDS SUMMARY | 2025-05-19 09:34 | XMS_ITS | Clinical Summary ---
Author Organization [facility] Address [address] [place] [id number] Phone Care Team Providers Care Kiss Mixer Name Role Phone Pcp, Unknown Primary Care Provider Unavailabl e Allergies No known active allergies Medications VITAMIN B-6 25 MG tablet Take by mouth. 04/21/2025 Active vitamin with [id number] ic Tab Take 1 tablet by mouth daily. Active doxylamine (UNISOM, DOXYLAMINE,) 25 mg tablet Take 1 tablet (25 mg total) by mouth nightly at bedtime as needed for nausea. 30 tablet 1 05/14/2025 Active Active Problems Problem Noted Date Diagnosed Date Maternal varicella, non-immune 05/18/2025 Overview (05/18/2025): Recommend PP vaccination Rubella non-immune status, antepartum 05/18/2025 Overview (05/18/2025): Recommend PP vaccination Encounter for supervision of normal in second trimester 05/14/2025 Overview (05/15/2025): Screen for IPV* CNM MD Group PN care? * screening * Baby ASA? 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 PT, pain control)* Estimated Date of Delivery Comme nts Yes 11/05/2025 Based on last me nstrual period of 01/29/2025 Encounters Date Type Department Care Team Description 05/14/2025 9:21 AM EDT - 05/14/2025 11:59 PM EDT Hospital Encounter [facility] [address] [place] [address] [place] [address] Abby Farris CNM Discharge Disposition: Home or Self Care 05/14/2025 8:10 AM EDT Initial [facility] [address] [place] [address] [place] [address] Abby Farris CNM Miranda-Leon, [place]: [id number] 05/14/2025 Telephone [facility] [address] [place] [address] [place] [address] Abby Farris CNM 05/14/2025 Transcribe Orders [facility] [address] [place] [address] [place] [address] Abby Farris CNM Encounter for supervision of other normal in second trimester (Primary Dx) from Last 3 Months Immunizations Immunization Administration Dates Next Due COVID-19 Pfizer Comirnaty Vaccine 12+ 05/14/2025 INFLUENZA, SPLIT VIRUS, TRIVALENT PF 05/14/2025 Social History Tobacco Use Types Packs/Day Years [...] on file Sexual Orientation Not on file Last Filed Vital Signs Vital Sign Reading Time Taken Comments Blood Pressure 98/58 05/14/2025 8:28 AM EDT Pulse - - Temperature - - Respiratory Rate - - Oxygen Saturation - - Inhaled Oxygen Concentration - - Weight 67.1 kg (148 lb) 05/14/2025 8:28 AM EDT Height 160 cm (5' 3 ) 05/14/2025 8:29 AM EDT Body Mass Index 26.22 05/14/2025 8:28 AM EDT Plan of Treatment Upcoming Encounters Date Type Department Care Team (Late st Contact Info) Description 05/22/2025 2:10 PM EST Appointment [facility] [address] [place] [address] Abby Farris CNM [address] [place] [address] 05/22/2025 2:50 PM EST Routine [facility] [address] [place] [address] [place] [address] Linda Padilla CNM [facility], [address] [address] Health Maintenance Due Date Last Done Comments Adult Td,Tdap Booster 1995 DEPRESSION SCREENING 2007 PAP SMEAR 02/26/2016 COVID-19 VACCINE Completed 05/14/2025 HEPATITIS C SCREENING Completed 05/14/2025 HIV ONE-TIME SCREENING (18-6 5 YEARS) Completed 05/14/2025 INFLUENZA VACCINE Completed 05/14/2025 SMOKING STATUS SCREENING (On ce After 26 Yrs) Completed 05/14/2025 HEPATITIS A VACCINES Aged Out No long er eligible based on patient's age to complete this topic HIB VACCINES Aged Out No longer eligi ble based on patient's age to complete this topic MENINGOCOCCAL VACCINES (ACWY) Aged Out No longer eligible based on patient's age to complete this topic MENINGOCOCCAL VACCINES (B) Aged Out N o longer eligible based on patient's age to complete this topic PNEUMOCOCCAL VACCINES (0-49 years) Aged Out No longer eligible based on patient's age to complete this topic RSV VACCINE (No Doses Required) Completed Medical Devices Not on file Procedures Procedure Name Priority Date/Time Associated Diagnosis Comments MISCELLANEOUS LAB TEST Routine 9:41 AM EDT Encounter for supervision of other normal in second trimester MISCELLANEOUS LAB TEST Routine 9:41 AM EDT Encounter for supervision of other normal in second trimester HC BLOOD TYPING SEROLOGIC ABO Routine 05/14/2025 9:39 AM EDT Encounter for supervision of other normal in second trimester CBC Routine 05/14/2025 9:39 AM EDT Encounter for supervision of other normal in second trimester HEMOGLOBIN ELECTROPHORESIS Routine 05/14/2025 9:39 AM EDT Encounter for supervision of other normal in second trimester SYPHILIS ANTIBODY SCREEN ASSAY Routine 05/14/2025 9:39 AM EDT Encounter for supervision of other normal in second trimester HEPATITIS B SURFACE ANTIGEN Routine 05/14/2025 9:39 AM EDT Need for hepatitis B screening test HEPATITIS C ANTIBODY, QUALITATIVE Routine 05/14/2025 9:39 AM EDT Need for hepatitis C screening test RUBELLA ANTIBODY, IGG Routine 05/14/2025 9:39 AM EDT Encounter for supervision of other normal in second trimester VARICELLA-ZOSTER (VZV) ANTIBODY, IGG Routine 05/14/2025 9:39 AM EDT Encounter for supervision of other normal in second trimester HIV-1/2 ANTIGEN/ANTIBODY Routine 05/14/2025 9:39 AM EDT Screening for human immunodeficiency virus CHLAMYDIA TRACHOMATIS AND NEISSERIA GONORRHOEAE NUCLEIC ACID DETECTION Routine 05/14/2025 9:24 AM EDT Encounter for supervision of other normal in second trimester POCT URINE HCG Routine 05/14/2025 8:32 AM EDT Amenorrhea from Last 3 Months Results * Screen (05/14/2025 9:39 AM EDT) ABO/Rh O Positive [facility] Antibody Screen Negative [facility] Resulting Agency [facility] Blood 05/14/2025 9:39 AM EDT 05/14/2025 9:48 AM EDT Abby Farris CNM BLOOD BANK TEST ORDERAB LES Final Result Performing Organization Address [facility]/ZIP Co de Phone Number [address] [address] * (ABNORMAL) Rubella antibody, IgG (05/14/2025 9:39 AM EDT) Rubella Ab, IgG Negative(A ) Positive [facility] Blood (Blood) 05/14/2025 9:3 9 AM EDT 05/14/2025 9:48 AM EDT Abby Farris CNM NON CULTURE MICROBIOLOG Y Final Result Performing Organization Address City/[facility]/ZIP Co de Phone Number [address] [address] * (ABNORMAL) Varicella-zoster (VZV) antibody, IgG (05/14/2025 9:39 AM EDT) Varicella Ab(s) Negative(A ) Positive [facility] Blood (Blood) 05/14/2025 9:3 9 AM EDT 05/14/2025 9:48 AM EDT Abbyjean paul [facility] NON CULTURE MICROBIOLOG Y Final Result Performing Organization Address City/[facility]/ZIP Co de Phone Number [address] [address] * HIV-1/2 antigen/antibody (05/14/2025 9:39 AM EDT) Pathologist [facility] HIV-1/2 Antigen/Antibo dy NON-REACTI VE NON-REACTI VE [facility] Blood 05/14/2025 9:39 AM EDT 05/14/2025 9:48 AM EDT Abby LONDONO LAB BLOOD ORDERABLES Fi nal Result Performing Organization Address [facility]/ZIP Co de Phone Number [address] [address] * Hepatitis C antibody, qualitative (05/14/2025 9:39 AM EDT) Pathologist [facility] HCV NON-REACTIV E NON-REACTI VE [facility] Blood 05/14/2025 9:39 AM EDT 05/14/2025 9:48 AM EDT Abbyjean paul [place] LAB BLOOD ORDERABLES Fi nal Result Performing Organization Address [facility] Co de Phone Number [address] [address] * Syphilis antibody screen (05/14/2025 9:39 AM EDT) RPR NON-REACTIV E NON-REACTI VE [facility] Blood 05/14/2025 9:39 AM EDT 05/14/2025 9:48 AM EDT Abby Rafael Lul Farris [facility] LAB BLOOD ORDERABLES Fi nal Result [address] [address] * Hepatitis B surface antigen (05/14/2025 9:39 AM EDT) HBV SURFACE ANTIGEN NON-REACTI VE NON-REACTI VE [facility] Blood 05/14/2025 9:39 AM EDT 05/14/2025 9:48 AM EDT Abbyjean paul Farris [facility] LAB BLOOD ORDERABLES Fi nal Result Performing Organization Address City/[facility]/ZIP Co de Phone Number [address] [address] * (ABNORMAL) CBC (05/14/2025 9:39 AM EDT) WBC 10.73 4.00 - 11.00 K/uL [facility] RBC 4.29 4.00 - 5.20 M/uL [facility] HGB 11.7(L) 12.0 - 16.0 g/dL [facility] HCT 36.6 36.0 - 46.0 % [facility] PLT 229 150 - 450 K/uL [facility] MCV 85.3 80.0 - 100.0 [facility] MCH 27.3 27.0 - 31.0 pg [facility] MCHC 32.0 32.0 - 36.0 g/dL [facility] RDW 14.4 11.5 - 14.5 % [facility] MPV 11.5 8.4 - 12.0 [facility] NRBC 0.00 0.00 /100 WBCs [facility] ABSOLUTE NRBC 0.00 0.00 K/uL [facility] Blood 05/14/2025 9:39 AM EDT 05/14/2025 9:48 AM EDT Abby Farris [facility] LAB BLOOD ORDERABLES Fi [facility] Result [facility] [address] [place] [address] * Hemoglobin Evaluation (05/14/2025 9:39 AM EDT) HGB Interpretation SEE NOTE [facility] DPT OF LAB MED AND PAT+ [...] Test component not applicable or not reported. [facility] DPT OF LAB MED AND PAT+ Hb A 97.2 95.8 - 98.0 % [facility] DPT OF LAB MED AND PAT+ Hb F 0.0 0.0 - 0.9 % [facility] DPT OF LAB MED AND PAT+ Hb A2 2.8 2.0 - 3.3 % [facility] DPT OF LAB MED AND PAT+ Comment: (NOTE) ADDITIONAL INFORMATION This test has been modified from the train operations manager's instructions. Its performance characteristics were determined by [facility] in a manner consistent with CLIA requirements. This test has not been cleared or approved by the U.S. Food and Drug Administration. Variant 1 Test component not applicable or not reported. % [facility] DPT OF LAB MED AND PAT+ Variant 2 Test component not applicable or not reported. % [facility] DPT OF LAB MED AND PAT+ Variant 3 Test component not applicable or not reported. % [facility] DPT OF LAB MED AND PAT+ HGBCE Interpretation Test component not applicable or not reported. [facility] DPT OF LAB MED AND PAT+ HPLC Hemoglobin Variant See Interpretation [facility] DPT OF LAB MED AND PAT+ Comment: (NOTE) ADDITIONAL INFORMATION This test has been modified from the train operations manager's instructions. Its performance characteristics were determined by [facility] in a manner consistent with CLIA requirements. This test has not been cleared or approved by the U.S. Food and Drug Administration. Blood 05/14/2025 9:39 AM EDT 05/14/2025 9:48 AM EDT Abby Farris CNM LAB BLOOD ORDERABLES Fi nal Result [facility] DPT OF LAB MED AND PAT+ [address] [place] [address] * Chlamydia trachomatis and Neisseria gonorrhoeae Nucleic Acid Amplification (05/14/2025 9:24 AM EDT) CHLAMYDIA TRACHOMATIS Not Detected Not Detected [facility] NEISERIA GONORRHOEAE Not Detected Not Detected [facility] SPECIMEN TYPE URINE [facility] Urine (Urine) 05/14/2025 9:2 4 AM EDT 05/14/2025 3:34 PM EDT Abby Farris CNM NON CULTURE MICROBIOLOG Y Final Result [facility] [address] [place] [address] * (ABNORMAL) Poct Urine HCG (05/14/2025 8:32 AM EDT) HCG, urine Positive, Internal QCs acceptable(A) Negative [facility] Other 05/14/2025 8:32 AM EDT us Abby Mccarty Kaleigh CNM POINT OF CARE TEST HORACIO ALLISON Final Result [facility] [address] [facility] [place] [address], [facility] from Last 3 Months Insurance [place] Care Teams Kiss Mixer Relationship Specialty Start Date End Date Pcp, Unknown PCP - General 05/09/25 Additional Source Comments The information contained in this document represents components of the legal health record. It is not the complete legal health record.[facility]
[2025-05-19 09:38] LABS: MANUAL DIFF FLAG NO
[2025-05-19 09:53] LABS: Alanine Aminotransferase 32 U/L (0-31); Albumin Level 4.0 g/dL (3.5-5.0); Alkaline Phosphatase 71 U/L (39-117); Anion Gap 12 (12-20); Aspartate Amino Transferase 22 U/L (5-31); Blood Urea Nitrogen 6 mg/dL (9-16); Calcium 9.1 mg/dL (8.4-10.2); Carbon Dioxide 22 mmol/L (22-29); Chloride 107 mmol/L (96-108); Creatinine Clr Calc Pharmacy 120.5; Estimated Glomerular Filt Rate > 60; Potassium 3.7 mmol/L (3.3-5.1); Sodium 137 mmol/L (135-145); Total Protein 7.1 g/dL (6.5-8.0)
[2025-05-19 10:02] LABS: Hematocrit 37.0 % (37.0-47.0); Hemoglobin 12.0 g/dl (12.0-16.0); Imm Gran Abs Auto 0.06 X10*3/uL (0.00-0.03); Imm Gran Pct Auto 0.7 % (0.0-0.4); Lymphocytes Absolute Auto 1.8 X10*3/uL (1.2-4.9); Mean Corpuscular HGB Conc 32.4 g/dl (31.0-35.0); Mean Corpuscular Hemoglobin 26.7 pg (27.0-33.0); Mean Corpuscular Volume 82.2 fL (80.0-98.0); NRBC Abs Auto 0.000 X10*3/uL (0.0-0.012); NRBC Pct Auto 0.0 /100WBC (0.0-0.2); Platelet Count 233 X10*3/uL (160-400); Red Blood Count 4.50 X10*6/uL (4.20-5.50); White Blood Count 8.1 X10*3/uL (4.8-10.8)
[2025-05-19 11:44] VITALS: BP 97/58; PULSE 71; RESP 18; TEMP -17.7; TEMP 0; O2SAT 99
== END 2025-05-19 11:46 | disposition home or self-care (01) ==
PROVIDERS: Nurse Practitioner Family; Emergency Provider Emergency Medicine Emergency Medical Services
DX: O20.0 Threatened abortion (principal); Z3A.11 11 weeks gestation of pregnancy
CPT/HCPCS: 36415; 76801; 80053; 81001; 81025; 84702; 85025; 99284

== ENCOUNTER → 2025-05-19 08:59 | Outpatient (BNV) | payer MEDICAID, SELFPAY | PROVIDERS: Emergency Provider Emergency Medicine Emergency Medical Services; Visit Provider Radiology Vascular & Interventional Radiology | DX: O20.8 Other hemorrhage in early pregnancy (principal); Z3A.11 11 weeks gestation of pregnancy | CPT/HCPCS: 76801 ==